=== PATIENT | female | born 1930 | race Caucasian/White ===

== ENCOUNTER 2018-01-18 12:46 | Inpatient (IN) ==
[2018-01-18 13:56] LABS: Alanine Aminotransferase 10 Units/L (7-52); Albumin 3.7 g/dL (3.5-5.7); Albumin/Globulin Ratio 1.5 (1.1-2.2); Alkaline Phosphatase 57 Units/L (34-104); Aspartate Amino Transferase 18 Units/L (13-39); BUN/Creatinine Ratio 18 (6-26); Bilirubin,Direct 0.2 mg/dL (0.0-0.2); Bilirubin,Indirect 0.5 mg/dL (0.0-1.2); Bilirubin,Total 0.7 mg/dL (0.3-1.0); Blood Urea Nitrogen 31 mg/dL (8-23); Calcium 8.9 mg/dL (8.6-10.3); Carbon Dioxide 23 mEq/L (23-29); Chloride 107 mEq/L (98-107); Globulin 2.5 g/dL (2.4-3.5); Glucose 134 mg/dL (70-105); Osmolality,Calculated 295 (280-300); Potassium 4.3 mEq/L (3.5-5.1); Sodium 138 mEq/L (136-145); Total Protein 6.2 g/dL (6.4-8.9); Troponin I < 0.03 ng/mL (< 0.04); eGFR For Non-African Americans 28 (> 60)
[2018-01-18 14:08] LABS: Basophils % 0.4 %; Eosinophils # 0.1 K/mcL (0.0-0.6); Eosinophils % 0.5 %; Hematocrit 41.2 % (35.3-44.9); Hemoglobin 13.6 g/dL (11.5-15.4); Immature Granulocytes % 0.4 % (0-4); Lymphocytes # 1.5 K/mcL (0.6-4.6); Mean Corpuscular Hemoglobin 30.8 pg (28.0-33.3); Mean Corpuscular Volume 93.4 fL (83.0-100.0); Monocytes # 0.7 K/mcL (0.0-1.3); Neutrophils # 6.8 K/mcL (1.6-8.9); Platelet Count 218 K/mcL (140-400); Red Blood Count 4.41 M/mcL (3.82-4.97); Red Cell Distribution Width 14.1 % (11.5-14.5); Segmented Neutrophils % 74.7 %
[2018-01-18 14:10] LABS: INR 1.7; Prothrombin Time 18.8 Seconds (9.4-12.1)
[2018-01-18 14:28] LABS: Bilirubin,Urine Negative (Negative); Blood,Urine Negative (Negative); Clarity,Urine Clear (Clear); Color,Urine Yellow (Yellow); Glucose,Urine (UA) Normal (Normal); Ketones,Urine Negative (Negative); Leukocyte Esterase,Urine Small (Negative); Nitrite,Urine Positive (Negative); Protein,Urine Negative (Neg-Trace); Specific Gravity,Urine 1.016 (1.010-1.025); Urobilinogen,Urine Normal (Normal)
[2018-01-18 14:31] LABS: Bacteria,Urine Moderate per hpf (None-Few); Hyaline Casts,Urine None Seen per lpf (None-Few); RBC,Urine 0-3 per hpf (0-3); Squamous Epithelial Cell,Urine Many per lpf (None-Few)
[2018-01-18] MEDS ORDERED: rOPINIRole 1 MG TABLET PO ONE (15:41)
[2018-01-18] MEDS ORDERED: cefTRIAXone 1,000 MG in Water for inj. (sterile) 20 ML 10 ML IVP ONE (15:59)
[2018-01-18] MEDS ORDERED: Furosemide 40 MG/4 ML VIAL IVP ONE (15:59)
--- NOTE | 2018-01-18 16:00 | Emergency Department Note ---
Disposition Clinical Impression: Slurred speech, Frequent falls CHF (congestive heart failure) Qualifiers: Heart failure type: unspecified Heart failure chronicity: unspecified Qualified Code(s): I50.9 - Heart failure, unspecified UTI (urinary tract infection) Qualifiers: Urinary tract infection type: site unspecified Hematuria presence: without hematuria Qualified Code(s): N39.0 - Urinary tract infection, site not specified Disposition: Admitted As Inpatient Condition: Good General Adult HPI - General Chief complaint: ED Neuro Symptoms/Deficit Stated complaint: Slurred Speech / Elevated BP Time Seen by Provider: 01/18/18 12:58 Source: patient, family Limitations: no limitations Nursing Notes Reviewed: Yes Vital Signs Reviewed: Yes - History of Present Illness HPI Narrative: Patient presents today with daughter from primary care facility for further evaluation of slurred speech, generalized weakness, frequent falls. Patient's symptoms have been going on for last several days and progressively worse over the last 2 days. Patient has undergone multiple falls without hitting her head or losing consciousness. Not complaining of any traumatic pain at this time. Has not had dizziness or near syncopal events. The patient states that she is here because her daughter brought her. Patient has no complaints on my evaluation. Patient does have some underlying dementia but is otherwise pleasant and conversational and answers all questions appropriately. Pain Scale: 3 - Related Data Home Medications Medication Instructions Recorded Confirmed Acetaminophen [Acetaminophen ER] 650 mg PO Q4H PRN 01/18/18 01/18/18 Cyanocobalamin (Vitamin B-12) 1,000 mcg PO DAILY 01/18/18 01/18/18 [Vitamin B-12] Enalapril Maleate [Vasotec] 5 mg PO DAILY 01/18/18 01/18/18 Furosemide [Lasix] 40 mg PO MOWEFR 01/18/18 01/18/18 Memantine HCl [Namenda Xr] 28 mg PO DAILY 01/18/18 01/18/18 Metoprolol [Lopressor] 25 mg PO DAILY 01/18/18 01/18/18 Pantoprazole Sodium [Protonix] 20 mg PO DAILY 01/18/18 01/18/18 Potassium Chloride [Klor-Con 10] 10 meq PO BID 01/18/18 01/18/18 Ranitidine HCl [Acid [employer] Att[employer]] 150 mg PO DAILY 01/18/18 01/18/18 Rivaroxaban [Xarelto] 15 mg PO DAILY 01/18/18 01/18/18 Sertraline [Zoloft] 25 mg PO DAILY 01/18/18 01/18/18 carBAMazepine [Tegretol] 200 mg PO BID 01/18/18 01/18/18 clonazePAM [Klonopin] 0.5 mg PO DAILY PRN 01/18/18 01/18/18 rOPINIRole [Requip] 1 mg PO HS 01/18/18 01/18/18 Allergies Allergy/AdvReac Type Severity Reaction Status Date / Time No Known Allergies Allergy Verified 01/18/18 12:51 Review of Systems: As Per HPI Constitutional: Denies: fever, chills ENT ED: Reports: other (Slurred speech) Cardiovascular: Denies: chest pain Respiratory: Denies: cough, dyspnea Gastrointestinal: Denies: abdominal pain, nausea, vomiting Genitourinary: Denies: urgency, dysuria Musculoskeletal: Denies: back pain, neck pain Integumentary: Denies: rash, lesions Neurological: Reports: weakness (Generalized), other (Frequent falls). Denies: headache Endocrine: Denies: fatigue Past Medical History - Past Medical History Medical history: Reports: atrial fibrillation, cancer, dementia, hypertension Surgical history: Reports: orthopedic, other (Left knee replacement) Psychiatric history: Reports: anxiety - Social History Smoking Status: Never smoker Smokeless Tobacco Status: No Alcohol use: Reports: none Drug use: Reports: none Physical Exam General: Well appearing, nontoxic, no acute distress Head: Normocephalic Atraumatic Eyes: PERRL, EOMI ENT: Airway patent, no stridor Neck: supple Chest: Lungs clear to auscultation bilateral Cardiac: Regular rate and rhythm, no murmurs, rubs or gallops Abdomen: soft, nontender, nondistended; no guarding, rebound, or tenderness to percussion Musculoskeletal: Calves symmetric, nontender, no palpable cord Skin: No rash, normal skin tone Neuro: Alert and Oriented to person, place, but not time. No focal deficit. Cranial nerves II through XII symmetric and intact. 5 out of 5 muscle strength throughout the upper and lower extremities. Sensation is intact throughout the upper lower extremities. She has finger to nose and heel to michelle intact. She is pleasant and conversational and follows commands without difficulty. - General Limitations: no limitations General appearance: alert, in no apparent distress Course - Reevaluation(s) Reevaluation #1: Patient lives at assisted living. Social work has seen the patient is unable to help get the patient into a fdc position. Patient with frequent falls as well as slurred speech. She will likely need more continued care. Slurred speech is noted by family but would otherwise not be noticeable on exam. Patient is very pleasant. She does have chronic kidney disease. Her BNP is elevated and she does have some pleural effusions. Urine concerning for UTI. Patient's symptoms have been treated urine culture has been sent. Patient will be discussed the hospitalist for further evaluation. - Consultations Consultation #1: Discussed with hospitalist. Patient accepted for admission. Vital Signs Temperature 98.4 F 01/18/18 12:49 Pulse Rate 73 01/18/18 12:49 Respiratory Rate 18 01/18/18 12:49 Blood Pressure 159/87 01/18/18 12:49 O2 Sat by Pulse Oximetry 95 01/18/18 12:49 Temperature 98.4 F 01/18/18 13:14 Pulse Rate 85 01/18/18 17:49 Respiratory Rate 18 01/18/18 17:49 Blood Pressure 197/114 01/18/18 17:49 O2 Sat by Pulse Oximetry 95 01/18/18 17:49 Oxygen Delivery Oxygen Delivery Room Air Medical Decision Making - Medical Records Medical records reviewed: Yes I reviewed the patient's medical records. - Lab Data Lab results reviewed: Yes I reviewed the patient's lab results. Result diagrams: 01/18/18 13:19 01/18/18 13:19 Lab Results 01/18/18 01/18/18 01/18/18 Range/Units 13:19 13:19 13:19 WBC 9.1 (4.3-11.1) K/mcL RBC 4.41 (3.82-4.97) M/mcL Hgb 13.6 (11.5-15.4) g/dL Hct 41.2 (35.3-44.9) % MCV 93.4 (83.0-100.0) fL MCH 30.8 (28.0-33.3) pg MCHC 33.0 (31.6-35.5) g/dL RDW 14.1 (11.5-14.5) % Plt Count 218 (140-400) K/mcL MPV 11.0 (9.4-12.4) fL Immature Gran % 0.4 (0-4) % Seg Neutrophils % 74.7 % Lymphocytes % 16.0 % Monocytes % 8.0 % Eosinophils % 0.5 % Basophils % 0.4 % Neutrophils # 6.8 (1.6-8.9) K/mcL Lymphocytes # 1.5 (0.6-4.6) K/mcL Monocytes # 0.7 (0.0-1.3) K/mcL Eosinophils # 0.1 (0.0-0.6) K/mcL Basophils # 0.0 (0.0-0.2) K/mcL PT 18.8 H (9.4-12.1) Seconds INR 1.7 Sodium 138 (136-145) mEq/L Potassium 4.3 (3.5-5.1) mEq/L Chloride 107 (98-107) mEq/L Carbon Dioxide 23 (23-29) mEq/L BUN 31 H (8-23) mg/dL Creatinine 1.70 H (0.60-1.20) mg/dL Est GFR ( Amer) 34 L (> 60) Est GFR (Non-Af Amer) 28 L (> 60) BUN/Creatinine Ratio 18 (6-26) Glucose 134 H (70-105) mg/dL Calculated Osmolality 295 (280-300) Calcium 8.9 (8.6-10.3) mg/dL Total Bilirubin 0.7 (0.3-1.0) mg/dL Direct Bilirubin 0.2 (0.0-0.2) mg/dL Indirect Bilirubin 0.5 (0.0-1.2) mg/dL AST 18 (13-39) Units/L ALT 10 (7-52) Units/L Alkaline Phosphatase 57 (34-104) Units/L Troponin I < 0.03 (< 0.04) ng/mL B-Natriuretic Peptide (Less than 100) pg/mL Serum Total Protein 6.2 L (6.4-8.9) g/dL Albumin 3.7 (3.5-5.7) g/dL Globulin 2.5 (2.4-3.5) g/dL Albumin/Globulin Ratio 1.5 (1.1-2.2) Urine Color (Yellow) Urine Clarity (Clear) Urine pH (5.0-8.0) pH Units Ur Specific [place] (1.010-1.025) Urine Protein (Neg-Trace) mg/dL Urine Glucose (UA) (Normal) mg/dL Urine Ketones (Negative) mg/dL Urine Blood (Negative) Urine Nitrite (Negative) Urine Bilirubin (Negative) Urine Urobilinogen (Normal) mg/dL Ur Leukocyte Esterase (Negative) Urine Microscopic RBC (0-3) per hpf Urine Microscopic WBC (0-3) per hpf Ur Squamous Epith Cells (None-Few) per lpf Urine Bacteria (None-Few) per hpf Hyaline Casts (None-Few) per lpf Ur Culture Indicated? (NO) 01/18/18 01/18/18 Range/Units 13:19 14:03 WBC (4.3-11.1) K/mcL RBC (3.82-4.97) M/mcL Hgb (11.5-15.4) g/dL Hct (35.3-44.9) % MCV (83.0-100.0) fL MCH (28.0-33.3) pg MCHC (31.6-35.5) g/dL RDW (11.5-14.5) % Plt Count (140-400) K/mcL MPV (9.4-12.4) fL Immature Gran % (0-4) % Seg Neutrophils % % Lymphocytes % % Monocytes % % Eosinophils % % Basophils % % Neutrophils # (1.6-8.9) K/mcL Lymphocytes # (0.6-4.6) K/mcL Monocytes # (0.0-1.3) K/mcL Eosinophils # (0.0-0.6) K/mcL Basophils # (0.0-0.2) K/mcL PT (9.4-12.1) Seconds INR Sodium (136-145) mEq/L Potassium (3.5-5.1) mEq/L Chloride (98-107) mEq/L Carbon Dioxide (23-29) mEq/L BUN (8-23) mg/dL Creatinine (0.60-1.20) mg/dL Est GFR ( Amer) (> 60) Est GFR (Non-Af Amer) (> 60) BUN/Creatinine Ratio (6-26) Glucose (70-105) mg/dL Calculated Osmolality (280-300) Calcium (8.6-10.3) mg/dL Total Bilirubin (0.3-1.0) mg/dL Direct Bilirubin (0.0-0.2) mg/dL Indirect Bilirubin (0.0-1.2) mg/dL AST (13-39) Units/L ALT (7-52) Units/L Alkaline Phosphatase (34-104) Units/L Troponin I (< 0.04) ng/mL B-Natriuretic Peptide 384 H (Less than 100) pg/mL Serum Total Protein (6.4-8.9) g/dL Albumin (3.5-5.7) g/dL Globulin (2.4-3.5) g/dL Albumin/Globulin Ratio (1.1-2.2) Urine Color Yellow (Yellow) Urine Clarity Clear (Clear) Urine pH 6.0 (5.0-8.0) pH Units Ur Specific [place] 1.016 (1.010-1.025) Urine Protein Negative (Neg-Trace) mg/dL Urine Glucose (UA) Normal (Normal) mg/dL Urine Ketones Negative (Negative) mg/dL Urine Blood Negative (Negative) Urine Nitrite Positive A (Negative) Urine Bilirubin Negative (Negative) Urine Urobilinogen Normal (Normal) mg/dL Ur Leukocyte Esterase Small H (Negative) Urine Microscopic RBC 0-3 (0-3) per hpf Urine Microscopic WBC 3-5 H (0-3) per hpf Ur Squamous Epith Cells Many H (None-Few) per lpf Urine Bacteria Moderate H (None-Few) per hpf Hyaline Casts None Seen (None-Few) per lpf Ur Culture Indicated? NO. A (NO) - Radiology Data Radiology results reviewed: Yes I reviewed the patient's radiology results. - EKG Data EKG #1 EKG attestation: Yes I reviewed and interpreted this EKG. EKG results narrative: EKG shows atrial fibrillation with ventricular rate of 70. QRS 92. QTC 426. Patient has no significant ST elevations or depressions.
[2018-01-18] MEDS ORDERED: Naloxone 0.4 MG/ML INJ IVP PRN (18:04)
[2018-01-18] MEDS ORDERED: Furosemide 40 MG TABLET PO SCH (18:15)
--- NOTE | 2018-01-18 18:42 | Internal Med History&Physical ---
<RadhadarendenilsonCalixto richey - Last Filed: 01/18/18 20:59> Date of Encounter: 01/18/18 Time of Encounter: 16:30 Internal Medicine - H&P: HPI Chief complaint: Transient AMS/Neuro sx Admitted From: Emergency Dept Plans for Post Hospital Care: Home History of present illness: Ms. Marcos is a 88 year old female w/PMH of atrial fibrillation on Xarelto, breast cancer of the left breast, dementia, HTN, GERD, and anxiety presents from the ED with chief complaint of transient neuro symptoms and altered mental status since Thursday. Patient's daughter's report intermittent slurred speech and weakness. Also reports incidents of falls 3 since Thursday due to bilateral lower extremity weakness. Patient's daughter's also reports increase in pedal edema of the lower extremities. Patient and daughters deny recent illness, fever, chills, nausea, vomiting, headache, changes in vision, cough, chest congestion, chest pain, shortness of breath, abdominal pain, diarrhea, constipation, unusual bleeding, dizziness, lightheadedness, numbness, tingling, pre-syncope, or syncope. Past Med Surg Social Fam HX - Past Medical History Source: patient, old records reviewed Medical history: atrial fibrillation, cancer (Left breast), dementia, GERD, hypertension Additional medical history: breast cancer Psychiatric history: anxiety - Past Surgical History Surgical History: orthopedic, other (Left knee replacement) - Social History Smoking Status: Never smoker Smokeless Tobacco Status: No Alcohol use: none Drug use: none Current living situation: Home, With Family Activity Level: Uses cane/walker Recent Out of Country Travel Within the Last 8 Weeks: No Exposure or Possible Exposure to Illness During Travel: No - Family History Mother Race: Family Member Ethnicity: Non- Living Status: Age at : 99 Cause of : "old age" Hx Family Endocrine Disorder: Yes (DM) Father Race: Family Member Ethnicity: Non- Living Status: Age at : 86 Cause of : CVA Hx Family Endocrine Disorder: Yes (DM) Brother Race: Family Member Ethnicity: Non- Living Status: Age at : 60 Cause of : [place] Hx Family Cardiac Disorders: Yes ([place]) Hx Family Endocrine Disorder: Yes (DM) Sister Race: Family Member Ethnicity: Non- Living Status: Age at : 70 Cause of : Lung cancer Hx Family Cancer: Yes (Lung) Internal Medicine - H&P: Meds Acetaminophen [Acetaminophen ER] 650 mg PO Q4H PRN 01/18/18 [History] Cyanocobalamin (Vitamin B-12) [Vitamin B-12] 1,000 mcg PO DAILY 01/18/18 [ History] Enalapril Maleate [Vasotec] 5 mg PO DAILY 01/18/18 [History] Furosemide [Lasix] 40 mg PO MOWEFR 01/18/18 [History] Memantine HCl [Namenda Xr] 28 mg PO DAILY 01/18/18 [History] Metoprolol [Lopressor] 25 mg PO DAILY 01/18/18 [History] Pantoprazole Sodium [Protonix] 20 mg PO DAILY 01/18/18 [History] Potassium Chloride [Klor-Con 10] 10 meq PO BID 01/18/18 [History] Ranitidine HCl [Acid Targeting Acquisition Officer] 150 mg PO DAILY 01/18/18 [History] Rivaroxaban [Xarelto] 15 mg PO DAILY 01/18/18 [History] Sertraline [Zoloft] 25 mg PO DAILY 01/18/18 [History] carBAMazepine [Tegretol] 200 mg PO BID 01/18/18 [History] clonazePAM [Klonopin] 0.5 mg PO DAILY PRN 01/18/18 [History] rOPINIRole [Requip] 1 mg PO HS 01/18/18 [History] 3 Allergy/AdvReac Type Severity Reaction Status Date / Time No Known Allergies Allergy Verified 01/18/18 12:51 All Systems PM: A 10-system review of systems was performed and is negative for pertinent findings except as documented above in the HPI. - Constitutional Constitutional: as per HPI, falls, weakness (Bilateral LEs), no chills, no fever (s), no night sweats - EENT Eyes: no change in vision, no discharge, no pain, no photophobia Ears: no ear discharge, no ear pain, no tinnitus Nose, mouth and throat: no dysphagia, no nasal discharge, no neck pain, no sore throat - Breasts Breasts: as per HPI - Cardiovascular Cardiovascular ROS IM: as per HPI, edema (Bilateral pedal edema), irregular heart rhythm, orthopnea, no chest pain, no diaphoresis, no dyspnea, no lightheadedness, no palpitations, no syncope - Respiratory Respiratory: no cough, no dyspnea, no wheezing, no excessive phlegm production - Gastrointestinal Gastrointestinal: no abdominal pain, no diarrhea, no hematemesis, no hematochezia, no melena, no nausea, no vomiting - Genitourinary Genitourinary: no change in urinary stream, no dysuria, no flank pain, no hematuria Menstruation: as per HPI - Musculoskeletal Musculoskeletal ROS IM: no numbness, no tingling - Integumentary Integumentary IM: no rash, no unusual bruising - Neurological Neurological ROS: as per HPI, abnormal speech, confusion, frequent falls, memory loss (D/T dementia), weakness (Bilateral LEs), no convulsions, no focal weakness, no numbness, no tingling, no tremor(s) - Psychiatric Psychiatric: as per HPI, anxiety - Endocrine Endocrine IM: as per HPI - Hematologic/Lymphatic Hematologic/Lymphatic: no easy bruising - Allergic/Immunologic Allergic/Immunologic: as per HPI - Constitutional Vitals: Temp Pulse Resp BP Pulse Ox 98.4 F 85 18 197/114 95 01/18/18 13:14 01/18/18 17:49 01/18/18 17:49 01/18/18 17:49 01/18/18 17:49 General appearance: Present: cooperative, A&O X 2, pleasant, no acute distress, obese, answers questions appropriately - Head Head exam: Present: atraumatic, normocephalic - Eye Eye exam: Present: PERRL, conjuntiva pink, sclera anicteric Pupils: Present: PERRL - ENT ENT exam: Present: normal exam - Neck Neck exam general surgery: Present: supple, trachea midline. Absent: lymphadenopathy - Respiratory Respiratory exam: Present: CTAB. Absent: accessory muscle use, rales, rhonchi, wheezes - Cardiovascular Cardiovascular exam: Present: irregular rhythm - GI/Abdominal GI/Abdominal exam: Present: normal bowel sounds, soft, no peritoneal signs. Absent: distended, tenderness - Rectal Rectal exam: Present: deferred - Additional comments: exam deferred. - Extremities Exam Extremities exam: Present: pedal edema, warm, radial pulses palpable and symmetrical. Absent: calf tenderness, cyanotic - Back Exam Back exam: Present: normal inspection - Neurological Exam Neurological exam: Present: alert, CN II-XII intact, no focal deficits, strengths equal and symetr throughout. Absent: pronater drift, facial droop, speech deficit - Psychiatric Psychiatric exam: Present: normal affect, normal mood - Skin Skin exam: Present: dry, intact Internal Med - H&P Results - Labs CBC & Chem 7: 01/18/18 13:19 01/18/18 13:19 - Diagnostic Studies Chest x-ray Additional comments: Impressions Chest X-Ray 01/18/18 12:59 IMPRESSION: Findings suggest congestive heart failure. Bibasilar hypoaeration D/ / Siva Valdes MD / Siva Valdes MD Interpreting Provider: Siva Valdes MD CT scan - head Additional comments: Impressions Head CT 01/18/18 12:59 IMPRESSION: No acute intracranial abnormality. Age related changes including chronic small vessel ischemic disease and cerebral atrophy. D/ / 01/18/2018 14:18:33 Amanda Camacho MD / jennifer Interpreting Provider: Amanda Camacho MD - Assessment and plan (1) Transient neurological symptoms Current Visit: Yes Status: Acute Assessment and plan: Acute and transient neurologic sx as described by pts. daughters since Thursday. Patient's daughters reports slurred speech and weakness intermittently with falls 3 since Thursday. Patient also has history of dementia. Current dx of UTI. CT of the head/brain shows no acute intracranial abnormality and age-related changes including chronic small vessel ischemic disease and cerebral atrophy. MRI of the head/brain ordered to r/o infarct/ischemia. NIHSS modified. Neuro checks Q2HR. Padding to bed rails. Will allow for permissive HTN until MRI resulted. Neurology consult ordered and discussed with Dr. Adair and I appreciate the consult and recommendations. Falls/safety precautions. Up with assist. Patient discussed with Dr. Dennison who agrees w/plan of care. Pt. is high risk for further morbidity and complications d/t current transient neuro sx , current UTI, HTN, acute and new onset of congestive heart failure, hx, and risk factors. Inpatient. (2) UTI (urinary tract infection) Current Visit: Yes Status: Acute Assessment and plan: Acute UTI. U/A suspicious for UTI so urine reflex w/culture and micro ordered. AMS from UTI versus current dementia versus transient neuro sx. IVPB ceftriaxone given in ED. Will continue IVPB ceftriaxone 1000 mg daily beginning tomorrow per pharmacy for renal dosing. Monitor pt. and f/u labs. Qualifiers: Urinary tract infection type: site unspecified Hematuria presence: without hematuria Qualified Code(s): N39.0 - Urinary tract infection, site not specified (3) Acute congestive heart failure Current Visit: Yes Status: Acute Assessment and plan: Acute congestive heart failure. BNP 384 on admission. Patient and daughters deny formal diagnosis of CHF. 1.5 L daily fluid restriction. Echocardiogram ordered. Strict I&O and daily weight. 40 mg IVP Lasix given in ED the patient to be monitored overnight per Nephrology in order to assess for the need for IVP Lasix. Qualifiers: Heart failure type: unspecified Qualified Code(s): I50.9 - Heart failure, unspecified (4) Frequent falls Current Visit: Yes Status: Acute Assessment and plan: Hx of three falls since Thursday d/t weakness of bilateral LEs. Falls/safety precautions. Up with assist only. PT/OT consults ordered. (5) Atrial fibrillation Current Visit: Yes Status: Chronic Assessment and plan: Hx of chronic atrial fibrillation. Continue patient's Xarelto. Continuous cardiac telemetry. Qualifiers: Atrial fibrillation type: chronic Qualified Code(s): I48.2 - Chronic atrial fibrillation (6) Dementia Current Visit: Yes Status: Chronic Assessment and plan: Hx of chronic dementia. Continue patient's Namenda. Falls/safety precautions and up with assist. Consider adding sitter if patient becomes agitated. Qualifiers: Dementia type: unspecified type Dementia behavioral disturbance: without behavioral disturbance Qualified Code(s): F03.90 - Unspecified dementia without behavioral disturbance (7) HTN (hypertension) Current Visit: Yes Status: Chronic Assessment and plan: Hx of chronic HTN. Monitor patient vital signs. Will allow for permissive hypertension due to neurologic symptoms currently while awaiting MRI results. We will continue Lopressor and Vasotec if MRI results negative. Qualifiers: Hypertension type: essential hypertension Qualified Code(s): I10 - Essential (primary) hypertension (8) Anxiety Current Visit: Yes Status: Chronic Assessment and plan: Hx of chronic anxiety. Continue pts. Tegretol, Klonopin, and Zoloft. (9) CKD (chronic kidney disease) stage 4, GFR 15-29 ml/min Current Visit: Yes Status: Chronic Assessment and plan: Hx of chronic CKD, currently stage IV w/GFR of 28 and creatinine of 1.70. Strict I&O's and daily weight. Nephrology consult ordered and discussed with Dr. Barron w/recommendation to give 40 mg IVP lasix and monitor overnight for effectiveness. Assess for further need for IVP lasix in a.m. I appreciate the consult and recommendations as always. (10) DVT prophylaxis Current Visit: Yes Status: Acute Assessment and plan: Continue patient's Xarelto for DVT prophylaxis. Monitor pt. for signs of bleeding. - Time Spent With Patient Total time spent is greater than 50% in coordination of care (as documented) at patient's floor/unit and/or counseling patient: Greater than 35 minutes <Hari Dennison - Last Filed: 01/20/18 00:00> Date of Encounter: 01/18/18 Internal Medicine - H&P: HPI History of present illness: Ms. Marcos is a 88 year old female All Systems PM: A 10-system review of systems was performed and is negative for pertinent findings except as documented above in the HPI. - Constitutional Vitals: Temp Pulse Resp BP Pulse Ox 97.4 F L 60 16 162/88 95 01/19/18 16:16 01/19/18 16:16 01/19/18 16:16 01/19/18 16:16 01/19/18 16:16 Internal Med - H&P Results - Labs CBC & Chem 7: 01/19/18 04:00 01/19/18 04:00 Labs: Short CBC 01/19/18 Range/Units 04:00 WBC 7.8 (4.3-11.1) K/mcL Hgb 13.9 (11.5-15.4) g/dL Hct 41.8 (35.3-44.9) % Plt Count 204 (140-400) K/mcL Neutrophils # 5.3 (1.6-8.9) K/mcL BMP 01/19/18 04:00 Sodium 140 Potassium 3.6 Chloride 104 Carbon Dioxide 26 BUN 34 H Creatinine 1.57 H Glucose 108 H Calcium 9.0 Liver Function 01/19/18 Range/Units 04:00 Total Bilirubin 0.6 (0.3-1.0) mg/dL AST 18 (13-39) Units/L ALT 10 (7-52) Units/L Alkaline Phosphatase 70 (34-104) Units/L Albumin 3.6 (3.5-5.7) g/dL - Attending Attestation I SAW/EXAMINED AND EVALUATED THE PATIENT WITH THE QUARRYING SPECIALIST/PA/ ON THE DAY OF ADMISSION. THE CASE WAS DISCUSSED WITH HIM/HER. I AGREE WITH THE FINDINGS/PLAN , DOCUMENTED IN THE QUARRYING SPECIALIST/PA'S H&P. THE DOCUMENT WAS EDITED BY ME TO CORRECT ERRORS AND ADD MISSING DATA. - Assessment and plan (1) Frequent falls Current Visit: Yes Status: Acute (2) UTI (urinary tract infection) Current Visit: Yes Status: Acute Qualifiers: Urinary tract infection type: acute cystitis Hematuria presence: without hematuria Qualified Code(s): N30.00 - Acute cystitis without hematuria (3) Transient neurological symptoms Current Visit: Yes Status: Acute (4) Acute congestive heart failure Current Visit: Yes Status: Acute Qualifiers: Heart failure type: systolic Qualified Code(s): I50.21 - Acute systolic ( congestive) heart failure (5) DVT prophylaxis Current Visit: Yes Status: Acute (6) Atrial fibrillation Current Visit: Yes Status: Chronic Qualifiers: Atrial fibrillation type: chronic Qualified Code(s): I48.2 - Chronic atrial fibrillation (7) Dementia Current Visit: Yes Status: Chronic Qualifiers: Dementia type: unspecified type Dementia behavioral disturbance: without behavioral disturbance Qualified Code(s): F03.90 - Unspecified dementia without behavioral disturbance (8) HTN (hypertension) Current Visit: Yes Status: Chronic Qualifiers: Hypertension type: essential hypertension Qualified Code(s): I10 - Essential (primary) hypertension (9) Anxiety Current Visit: Yes Status: Chronic (10) CKD (chronic kidney disease) stage 4, GFR 15-29 ml/min Current Visit: Yes Status: Chronic (11) Stroke Current Visit: Yes Status: Acute Qualifiers: CVA mechanism: embolism Precerebral and cerebral artery: middle cerebral artery Laterality of affected vessel: left Qualified Code(s): I63.412 - Cerebral infarction due to embolism of left middle cerebral artery - Time Spent With Patient Total time spent is greater than 50% in coordination of care (as documented) at patient's floor/unit and/or counseling patient:
[2018-01-18] MEDS: rOPINIRole 1 MG TABLET PO SCH (21:15)
[2018-01-18] MEDS: carBAMazepine 200 MG TABLET PO SCH (21:18)
[2018-01-19] MEDS ORDERED: *HR* Metoprolol 5 MG/5 ML VIAL IVP ONE (01:15)
[2018-01-19 04:25] LABS: Basophils % 0.5 %; Eosinophils # 0.1 K/mcL (0.0-0.6); Eosinophils % 1.8 %; Hematocrit 41.8 % (35.3-44.9); Hemoglobin 13.9 g/dL (11.5-15.4); Immature Granulocytes % 0.5 % (0-4); Lymphocytes # 1.4 K/mcL (0.6-4.6); Lymphocytes % 18.4 %; Mean Corpuscular HGB Conc 33.3 g/dL (31.6-35.5); Mean Corpuscular Hemoglobin 30.5 pg (28.0-33.3); Mean Corpuscular Volume 91.7 fL (83.0-100.0); Mean Platelet Volume 10.7 fL (9.4-12.4); Monocytes # 0.9 K/mcL (0.0-1.3); Monocytes % 10.9 %; Neutrophils # 5.3 K/mcL (1.6-8.9); Platelet Count 204 K/mcL (140-400); Red Blood Count 4.56 M/mcL (3.82-4.97); Red Cell Distribution Width 13.9 % (11.5-14.5); Segmented Neutrophils % 67.9 %
[2018-01-19 04:47] LABS: Albumin 3.6 g/dL (3.5-5.7); Albumin/Globulin Ratio 1.3 (1.1-2.2); Bilirubin,Total 0.6 mg/dL (0.3-1.0); Chol/HDL Ratio 4.9 (0-4.9); Globulin 2.7 g/dL (2.4-3.5); Magnesium 1.9 mg/dL (1.6-2.6); Potassium 3.6 mEq/L (3.5-5.1); Total Protein 6.3 g/dL (6.4-8.9)
[2018-01-19 06:54] LABS: Estimated Average Glucose 114 mg/dl; Hemoglobin A1C 5.6 %
--- NOTE | 2018-01-19 07:10 | Electrocardiograph Report ---
[facility] [employer] Test Date: 2018-01-18 Pat Name: Dixon Marcos Department: 103 Room: 2NE21 Gender: F [employer] Cutter: 32 : 1930 Requested By: [id number] Order Number: [id number] Reading MD: Calixto Barnes Measurements Intervals [place] Rate: 70 P: MO: 0 QRS: 40 QRSD: 92 T: 11 QT: 405 QTc: 426 Interpretive Statements ATRIAL FIBRILLATION MODERATE ST DEPRESSION [0.05+ mV ST DEPRESSION] Electronically Signed On 01-19-2018 7:09:06 EDT by Calixto Barnes
--- NOTE | 2018-01-19 08:27 | Neurology - Consult Note ---
<Declan Ren - Last Filed: 01/19/18 08:42> Date of Encounter: 01/19/18 Time of Encounter: 08:05 Assessment and Plan (1) Transient neurological symptoms Current Visit: Yes Status: Acute Her neurological symptoms from admission have resolved today. She does have an underlying baseline dementia and her AMS and confusion could be exacerbations of this and most likely due to her current UTI or hypertensive encephalopathy. Her BP was as high as 200/130 this early am and at last check was 181/99. 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 No evidence of her neurological symptoms due to a new acute infarct. Recommend restarting her antihypertensives Continue current UTI treatment Recommend starting a statin Will check carbamazepine level. Unknown reason at this time of why she is taking this as she denies any hx of seizures or bipolar. Daughter not present at time of exam but will check with her if she knows why. Code(s): R29.818 - Other symptoms and signs involving the nervous system SNOMED Code(s): 342803973 History of Present Illness Chief complaint: LE weakness and AMS HPI: Ms. Marcos is a 88 year old female with a PMH significant for afib, HTN, dementia, and anxiety who neurology consulted for altered mental status and intermittent neuro symptoms of LE weakness and slurred speech. Most of history comes from her medical record as she could not remember answers to most of my questions. Her daughter was not present but was last night during admission. For the last 4 days she has been experiencing LE weakness and slurred speech that is intermittent but does not remember how long the symptoms last or how often they occur. She says she thinks the LE weakness is worse in the evening and also indicates she has LE edema that also worsens as the day goes on. She doesn't recall if she has had these symptoms before. She has fallen 3x in the last 4 days and thinks it has always been when she is walking. She has a walker but says she doesn't use it. She denied any dizziness, lightheadedness, diplopia , blurry vision, impending syncope or syncope, hx seizures or migraines, chest pain, palpitations, SOB, numbness, paresthesias, UE weakness, worsening confusion, or dysphagia. UA here shows a current UTI, in afib on arrival, CT head did not show anything acute and her MRI brain showed 2 small cerebral infarcts that are most likely subacute involving L frontal and L parietal lobes. Her BP was as high as 200/130 this early am and was 181/99 currently with BP meds held. Past Med Surg Social Fam HX - Past Medical History Medical history: atrial fibrillation, cancer (Left breast), dementia, GERD, hypertension Additional medical history: breast cancer Psychiatric history: anxiety - Past Surgical History Surgical History: orthopedic, other (Left knee replacement) - Social History Smoking Status: Never smoker Smokeless Tobacco Status: No Alcohol use: none Drug use: none - Family History Brother Race: Family Member Ethnicity: Non- Living Status: Age at : 60 Cause of : CA Hx Family Cardiac Disorders: Yes (CA) Hx Family Endocrine Disorder: Yes (DM) Sister Race: Family Member Ethnicity: Non- Living Status: Age at : 70 Cause of : Lung cancer Hx Family Cancer: Yes (Lung) Mother Race: Family Member Ethnicity: Non- Living Status: Age at : 99 Cause of : "old age" Hx Family Endocrine Disorder: Yes (DM) Father Race: Family Member Ethnicity: Non- Living Status: Age at : 86 Cause of : CVA Hx Family Endocrine Disorder: Yes (DM) Medications and Allergies Acetaminophen [Acetaminophen ER] 650 mg PO Q4H PRN 01/18/18 [History] Cyanocobalamin (Vitamin B-12) [Vitamin B-12] 1,000 mcg PO DAILY 01/18/18 [ History] Enalapril Maleate [Vasotec] 5 mg PO DAILY 01/18/18 [History] Furosemide [Lasix] 40 mg PO MOWEFR 01/18/18 [History] Memantine HCl [Namenda Xr] 28 mg PO DAILY 01/18/18 [History] Metoprolol [Lopressor] 25 mg PO DAILY 01/18/18 [History] Pantoprazole Sodium [Protonix] 20 mg PO DAILY 01/18/18 [History] Potassium Chloride [Klor-Con 10] 10 meq PO BID 01/18/18 [History] Ranitidine HCl [Acid Sales Route Driver] 150 mg PO DAILY 01/18/18 [History] Rivaroxaban [Xarelto] 15 mg PO DAILY 01/18/18 [History] Sertraline [Zoloft] 25 mg PO DAILY 01/18/18 [History] carBAMazepine [Tegretol] 200 mg PO BID 01/18/18 [History] clonazePAM [Klonopin] 0.5 mg PO DAILY PRN 01/18/18 [History] rOPINIRole [Requip] 1 mg PO HS 01/18/18 [History] 3 Allergy/AdvReac Type Severity Reaction Status Date / Time No Known Allergies Allergy Verified 01/18/18 12:51 All Systems: The remainder of the systems were reviewed and are negative Physical Examination - Vital Signs Vital Signs: Initial Vital Signs Temp Pulse Resp BP Pulse Ox 98.4 F 73 18 159/87 95 01/18/18 12:49 01/18/18 12:49 01/18/18 12:49 01/18/18 12:49 01/18/18 12:49 - Constitutional General appearance: comfortable - Neurologic Sensorimotor examination: intact Motor examination - right side: 5/5: deltoids, biceps, triceps, wrist flexion, wrist extension, data examination clerk, hip flexors, tibialis Anterior, quadriceps, toe extension (EHL), plantarflexion Motor examination - left side: 5/5: deltoids, biceps, triceps, wrist flexion, wrist extension, hip flexors, data examination clerk, quadriceps, tibialis Anterior, toe extension (EHL), plantarflexion Detailed sensory examination: intact, light touch, temperature, vibration Reflexes: Biceps: 2+, Triceps: 2+, Brachioradialis: 2+, Patella: 2+, Achilles: 2 + Mental Status Examination: awake, alert, oriented to person, oriented to place, follows commands appropriately, demented, impaired memory, impaired cognition, MMSE (Oriented to time and place but did not know the persident, could spell world forward but not backwards, could do serial 7's x1, remembered 0/3 words, could repeat, name objects, and follow commands, ), not reliable historian Cranial nerve examination: PERRL, EOMI, visual saldivar intact, sensory to face intact, no facial asymmetry is present, no dysarthria, soft palate elevates bilaterally upon phonation, flexes SCM and trapezius muscles symmetrically with full power, tongue protrudes midline, no atrophy or facial fasiculations present Cerebellar examination: no dysmetria Results - Laboratory Findings CBC and BMP: 01/19/18 04:00 01/19/18 04:00 Abnormal lab findings: Abnormal lab results PT 18.8 Seconds (9.4-12.1) H 01/18/18 13:19 BUN 34 mg/dL (8-23) H 01/19/18 04:00 Creatinine 1.57 mg/dL (0.60-1.20) H 01/19/18 04:00 Est GFR ( Amer) 38 (> 60) L 01/19/18 04:00 Est GFR (Non-Af Amer) 31 (> 60) L 01/19/18 04:00 Glucose 108 mg/dL (70-105) H 01/19/18 04:00 B-Natriuretic Peptide 384 pg/mL (Less than 100) H 01/18/18 13:19 Serum Total Protein 6.3 g/dL (6.4-8.9) L 01/19/18 04:00 Triglycerides 150 mg/dL (< 150) H 01/19/18 04:00 HDL Cholesterol 33 mg/dL (40-59) L 01/19/18 04:00 Urine Nitrite Positive (Negative) A 01/18/18 14:03 Ur Leukocyte Esterase Small (Negative) H 01/18/18 14:03 Urine Microscopic WBC 3-5 per hpf (0-3) H 01/18/18 14:03 Ur Squamous Epith Cells Many per lpf (None-Few) H 01/18/18 14:03 Urine Bacteria Moderate per hpf (None-Few) H 01/18/18 14:03 Ur Culture Indicated? NO. (NO) A 01/18/18 14:03 Consult Discharge Plan - Plan Referrals: Aidan Amador MD [Primary Care Provider] - <Siva Mares - Last Filed: 01/19/18 18:06> Date of Encounter: 01/19/18 Time of Encounter: 17:58 Assessment and Plan (1) Encephalopathy acute Current Visit: Yes Status: Acute I believe this patient has experienced acute encephalopathy superimposed on her baseline dementia. I believe that there is a acute component of hypertensive encephalopathy. Her blood pressure upon admission was 200/130. I believe is also a component of infectious encephalopathy secondary to acute UTI. Her symptoms have not resolved since admission and she is back to her normal baseline. The MRI scan of the brain did reveal 2 small subcortical infarcts 1 left frontal the other left parietal. I am not convinced that either of these are relative to the symptoms resulting in her acute admission. However there likely resultant from the malignant hypertension. The only other concern I have is whether or not she could possibly be toxic on the carbamazepine. I will therefore check a carbamazepine level. I will reassess her tomorrow. She will continue her Xarelto. I would not be in favor of starting antiplatelet therapy on her. Daughter is concerned that she has had a few falls as of late. Although I find no focal neurologic deficits, it may not be a bad idea for her to go to a retirement facility for short rehabilitation course upon discharge from the hospital. History of Present Illness HPI: Chart was reviewed, patient was seen and examined independently. The case was discussed with Dr. Ren. Actually she does not have seizures however she takes carbamazepine for trigeminal neuralgia. Other than that, I agree with his assessment of the history as stated above. Ms. Marcos is a 88 year old female ROS unobtainable: due to mental status All Systems: The remainder of the systems were reviewed and are negative Physical Examination - Vital Signs Vital Signs: Initial Vital Signs Temp Pulse Resp BP Pulse Ox 98.4 F 73 18 159/87 95 01/18/18 12:49 01/18/18 12:49 01/18/18 12:49 01/18/18 12:49 01/18/18 12:49 - Exam Exam: I agree with Dr. Ren's neurologic examination is documented on this record. Results - Laboratory Findings CBC and BMP: 01/19/18 04:00 01/19/18 04:00 Abnormal lab findings: Abnormal lab results PT 18.8 Seconds (9.4-12.1) H 01/18/18 13:19 BUN 34 mg/dL (8-23) H 01/19/18 04:00 Creatinine 1.57 mg/dL (0.60-1.20) H 01/19/18 04:00 Est GFR ( Amer) 38 (> 60) L 01/19/18 04:00 Est GFR (Non-Af Amer) 31 (> 60) L 01/19/18 04:00 Glucose 108 mg/dL (70-105) H 01/19/18 04:00 B-Natriuretic Peptide 384 pg/mL (Less than 100) H 01/18/18 13:19 Serum Total Protein 6.3 g/dL (6.4-8.9) L 01/19/18 04:00 Triglycerides 150 mg/dL (< 150) H 01/19/18 04:00 HDL Cholesterol 33 mg/dL (40-59) L 01/19/18 04:00 Urine Nitrite Positive (Negative) A 01/18/18 14:03 Ur Leukocyte Esterase Small (Negative) H 01/18/18 14:03 Urine Microscopic WBC 3-5 per hpf (0-3) H 01/18/18 14:03 Ur Squamous Epith Cells Many per lpf (None-Few) H 01/18/18 14:03 Urine Bacteria Moderate per hpf (None-Few) H 01/18/18 14:03 Ur Culture Indicated? NO. (NO) A 01/18/18 14:03
[2018-01-19] MEDS: Cyanocobalamin (B-12) 1,000 MCG TABLET PO SCH (10:00)
[2018-01-19] MEDS: Famotidine 20 MG TABLET PO SCH (10:00)
[2018-01-19] MEDS: *HR* Rivaroxaban 15 MG TABLET PO SCH (10:01)
[2018-01-19] MEDS: carBAMazepine 200 MG TABLET PO SCH ×2 (10:05→20:42)
[2018-01-19] MEDS ORDERED: NON-FORMULARY MEDICATION 1 EACH EACH (Acetaminophen [Acetaminophen Er] 650 MG) PO PRN (12:59)
--- NOTE | 2018-01-19 15:03 | Neurology - Consult Note ---
Date of Encounter: 01/19/18 Time of Encounter: 14:00 History of Present Illness Chief complaint: slurred speech HPI: Ms. Marcos is a 88 year old female PMHx CHF, A fib on Xeralto, dementia, CKD stage 4, history of left breast cancer presented with complaints of altered mental status and slurred speech/weakness with multiple falls as well as pedal edema. Daughter is at bedside. Patient reports that her edema has improved. Denies any current dizziness or blurry vision. AO x 3. Does admit to worsening weakness over the last few months. Denies difficulty voiding, denies hematuria, dysuria. Able to tolerate PO intake but does admit to lack of appetite. Denies recent illness, fever, chills, nausea, vomiting, diarrhea. Past Med Surg Social Fam HX - Past Medical History Medical history: atrial fibrillation, cancer (Left breast), dementia, GERD, hypertension Additional medical history: breast cancer Psychiatric history: anxiety - Past Surgical History Surgical History: orthopedic, other (Left knee replacement) - Social History Smoking Status: Never smoker Smokeless Tobacco Status: No Alcohol use: none Drug use: none - Family History Brother Race: Family Member Ethnicity: Non- Living Status: Age at : 60 Cause of : ID Hx Family Cardiac Disorders: Yes (ID) Hx Family Endocrine Disorder: Yes (DM) Sister Race: Family Member Ethnicity: Non- Living Status: Age at : 70 Cause of : Lung cancer Hx Family Cancer: Yes (Lung) Mother Race: Family Member Ethnicity: Non- Living Status: Age at : 99 Cause of : "old age" Hx Family Endocrine Disorder: Yes (DM) Father Race: Family Member Ethnicity: Non- Living Status: Age at : 86 Cause of : CVA Hx Family Endocrine Disorder: Yes (DM) Medications and Allergies Acetaminophen [Acetaminophen ER] 650 mg PO Q4H PRN 01/18/18 [History] Cyanocobalamin (Vitamin B-12) [Vitamin B-12] 1,000 mcg PO DAILY 01/18/18 [ History] Enalapril Maleate [Vasotec] 5 mg PO DAILY 01/18/18 [History] Furosemide [Lasix] 40 mg PO MOWEFR 01/18/18 [History] Memantine HCl [Namenda Xr] 28 mg PO DAILY 01/18/18 [History] Metoprolol [Lopressor] 25 mg PO DAILY 01/18/18 [History] Pantoprazole Sodium [Protonix] 20 mg PO DAILY 01/18/18 [History] Potassium Chloride [Klor-Con 10] 10 meq PO BID 01/18/18 [History] Ranitidine HCl [Acid Sas Statistical Programmer] 150 mg PO DAILY 01/18/18 [History] Rivaroxaban [Xarelto] 15 mg PO DAILY 01/18/18 [History] Sertraline [Zoloft] 25 mg PO DAILY 01/18/18 [History] carBAMazepine [Tegretol] 200 mg PO BID 01/18/18 [History] clonazePAM [Klonopin] 0.5 mg PO DAILY PRN 01/18/18 [History] rOPINIRole [Requip] 1 mg PO HS 01/18/18 [History] 3 Allergy/AdvReac Type Severity Reaction Status Date / Time No Known Allergies Allergy Verified 01/18/18 12:51 All Systems: The remainder of the systems were reviewed and are negative Physical Examination - Vital Signs Vital Signs: Initial Vital Signs Temp Pulse Resp BP Pulse Ox 98.4 F 73 18 159/87 95 01/18/18 12:49 01/18/18 12:49 01/18/18 12:49 01/18/18 12:49 01/18/18 12:49 Results - Laboratory Findings CBC and BMP: 01/19/18 04:00 01/19/18 04:00 Abnormal lab findings: Abnormal lab results PT 18.8 Seconds (9.4-12.1) H 01/18/18 13:19 BUN 34 mg/dL (8-23) H 01/19/18 04:00 Creatinine 1.57 mg/dL (0.60-1.20) H 01/19/18 04:00 Est GFR ( Amer) 38 (> 60) L 01/19/18 04:00 Est GFR (Non-Af Amer) 31 (> 60) L 01/19/18 04:00 Glucose 108 mg/dL (70-105) H 01/19/18 04:00 B-Natriuretic Peptide 384 pg/mL (Less than 100) H 01/18/18 13:19 Serum Total Protein 6.3 g/dL (6.4-8.9) L 01/19/18 04:00 Triglycerides 150 mg/dL (< 150) H 01/19/18 04:00 HDL Cholesterol 33 mg/dL (40-59) L 01/19/18 04:00 Urine Nitrite Positive (Negative) A 01/18/18 14:03 Ur Leukocyte Esterase Small (Negative) H 01/18/18 14:03 Urine Microscopic WBC 3-5 per hpf (0-3) H 01/18/18 14:03 Ur Squamous Epith Cells Many per lpf (None-Few) H 01/18/18 14:03 Urine Bacteria Moderate per hpf (None-Few) H 01/18/18 14:03 Ur Culture Indicated? NO. (NO) A 01/18/18 14:03 Consult Discharge Plan - Plan Referrals: Aidan Amador MD [Primary Care Provider] -
--- NOTE | 2018-01-19 15:16 | Nephrology Consult Note ---
Date of Encounter: 01/19/18 Time of Encounter: 14:00 Assessment and Plan (1) CKD (chronic kidney disease) stage 4, GFR 15-29 ml/min Current Visit: Yes Status: Chronic Patient's creatinine and renal function at baseline. No signs of current pedal edema noted. Patient is to resume her home BP medications including lisinopril 10mg daily and metoprolol 25mg daily. As there are no signs of edema, lasix only as needed for volume overload. Patient follows up outpatient with Dr. Wray. Plan to follow-up after discharge. (2) HTN (hypertension) Current Visit: Yes Status: Chronic Patient's BP has improved. We do not want to over-correct her blood pressure due to subacute cerebral infarcts. She is to continue her home medications as stated above. Hydralazine IV 10mg as needed for Systolic BP > 180. Qualifiers: Hypertension type: essential hypertension Qualified Code(s): I10 - Essential (primary) hypertension History of Present Illness - Reason for Consult Consult date: 01/19/18 Chronic Kidney Disease, accelerated hypertension Requesting physician: Calixto Maldonado - Chief Complaint Slurred speech, multiple falls, pedal edema - History of Present Illness 88F PMHx CHF, Atrial fibrillation on Xeralto, dementia, CKD stage 4, history of left breast cancer presented to ED for altered mental status with slurred speech , multiple falls, and pedal edema. Daughter is at bedside and reports that the patient has had worsening LE edema for the last few weeks. Patient denies any current dizziness, blurry vision, chest pain, SOB. She is able to void without difficulty and denies hematuria or dysuria. Denies recent illness, fever, chills , nausea, vomiting, diarrhea. She does admit to gradual worsening fatigue and decrease in oral intake. Denies any current focal deficits. Past Med Surg Social Fam HX - Past Medical History Medical history: atrial fibrillation, cancer (Left breast), dementia, GERD, hypertension Additional medical history: breast cancer Psychiatric history: anxiety - Past Surgical History Surgical History: orthopedic, other (Left knee replacement) - Social History Smoking Status: Never smoker Smokeless Tobacco Status: No Alcohol use: none Drug use: none - Family History Brother Race: Family Member Ethnicity: Non- Living Status: Age at : 60 Cause of : PA Hx Family Cardiac Disorders: Yes ([place]) Hx Family Endocrine Disorder: Yes (DM) Sister Race: Family Member Ethnicity: Non- Living Status: Age at : 70 Cause of : Lung cancer Hx Family Cancer: Yes (Lung) Mother Race: Family Member Ethnicity: Non- Living Status: Age at : 99 Cause of : "old age" Hx Family Endocrine Disorder: Yes (DM) Father Race: Family Member Ethnicity: Non- Living Status: Age at : 86 Cause of : CVA Hx Family Endocrine Disorder: Yes (DM) Medications and Allergies Acetaminophen [Acetaminophen ER] 650 mg PO Q4H PRN 01/18/18 [History] Cyanocobalamin (Vitamin B-12) [Vitamin B-12] 1,000 mcg PO DAILY 01/18/18 [ History] Enalapril Maleate [Vasotec] 5 mg PO DAILY 01/18/18 [History] Furosemide [Lasix] 40 mg PO MOWEFR 01/18/18 [History] Memantine HCl [Namenda Xr] 28 mg PO DAILY 01/18/18 [History] Metoprolol [Lopressor] 25 mg PO DAILY 01/18/18 [History] Pantoprazole Sodium [Protonix] 20 mg PO DAILY 01/18/18 [History] Potassium Chloride [Klor-Con 10] 10 meq PO BID 01/18/18 [History] Ranitidine HCl [Acid Provisioning Analyst] 150 mg PO DAILY 01/18/18 [History] Rivaroxaban [Xarelto] 15 mg PO DAILY 01/18/18 [History] Sertraline [Zoloft] 25 mg PO DAILY 01/18/18 [History] carBAMazepine [Tegretol] 200 mg PO BID 01/18/18 [History] clonazePAM [Klonopin] 0.5 mg PO DAILY PRN 01/18/18 [History] rOPINIRole [Requip] 1 mg PO HS 01/18/18 [History] 3 Allergy/AdvReac Type Severity Reaction Status Date / Time No Known Allergies Allergy Verified 01/18/18 12:51 Review of Systems All Systems: reviewed and no additional remarkable complaints except as stated Constitutional: as per HPI Nose, mouth and throat: as per HPI Cardiovascular: as per HPI Respiratory: as per HPI Gastrointestinal: as per HPI Genitourinary Female: as per HPI Menstruation: as per HPI Musculoskeletal: as per HPI Integumentary: as per HPI Neurological: as per HPI Exam - Vital Signs Vital signs: Initial Vital Signs Temp Pulse Resp BP Pulse Ox 98.4 F 73 18 159/87 95 01/18/18 12:49 01/18/18 12:49 01/18/18 12:49 01/18/18 12:49 01/18/18 12:49 Vital Signs - Last 8 Hours Temp Pulse Resp BP Pulse Ox 01/19/18 14:56 146/96 01/19/18 12:07 97.5 F L 85 16 152/118 95 Intake and Output 01/18/18 01/19/18 01/19/18 23:59 07:59 15:59 Intake Total 100 / 100 0 / 0 Output Total 100 / 100 550 / 550 0 / 0 Balance 0 / 0 -550 / -550 0 / 0 Intake: Oral 100 / 100 0 / 0 Output: Urine 100 / 100 550 / 550 0 / 0 Other: # Voids 1 Weight 63.3 kg Patient Weight 01/19/18 23:59 Weight 63.3 kg - General Appearance General appearance: well-developed, well-nourished, appears started age Neck: no JVD, no thyromegaly, no carotid bruit, supple Respiratory: clear Cardiology: no murmurs, no rub, no gallops, no edema, regular rate, regular rhythm, normal S1, normal S2 Gastrointestinal: normoactive bowel sounds, no tenderness, no guarding, no organomegaly, no masses Integumentary: no rash, warm and dry Neurologic: no focal deficit, no asterixis, alert and oriented x3, reflexes 2+ and symmetric, CN 3-12 intact Musculoskeletal: no deformities, no erythema, no cyanosis, no clubbing Psychiatric: mood/affect appropriate, cooperative Results - Lab Results 01/19/18 04:00 01/19/18 04:00 Most recent lab results Calcium 9.0 mg/dL (8.6-10.3) 01/19/18 04:00 Magnesium 1.9 mg/dL (1.6-2.6) 01/19/18 04:00 Consult Discharge Plan - Plan Referrals: Aidna Amador MD [Primary Care Provider] -
--- NOTE | 2018-01-19 17:31 | Internal Med Progress Note ---
<Marianne Allen - Last Filed: 01/19/18 18:31> Hospitalist Progress Note - Encounter Date of Encounter: 01/19/18 Time of Encounter: 10:45 - Subjective Interval History: Today, hospital day 1, she states that she is feeling well and has no complaints. She is at times a poor historian due to dementia. She denies continued weakness, difficulty with speech, difficulty swallowing, headache, dizziness, presyncope, fever, chills, chest pain, sortness of breath, abdominal pain, dysuria, dysphagia. She admits to frequency. She states that the weakness she experienced during falls over the past few days has completely resolved. When questioned about a lesion on her right forehead, she states that it is not due to a recent fall, but that she picks at the lesion when it scabs over. - Exam Vitals: Temp Pulse Resp BP Pulse Ox 97.4 F L 60 16 162/88 95 01/19/18 16:16 01/19/18 16:16 01/19/18 16:16 01/19/18 16:16 01/19/18 16:16 Exam: General: Resting comfortably, in no acute distress, alert, orientated to person , season and place, pleasant. HEENT: Small lesion above right eyebrow, patient was pickiing at lesion during exam. Normocephalic, no sign of bruising. EOMI, PERRL, mucus membranes moist. Neck soft, supple, trachea midline, no cervical lymphadenopathy. Cardio: Irregular heart rate, no murmurs, rubs or gallops. Normal S1, S2. No carotid bruits. Pulmonary: No wheezes, rales or rhonchi. No accessory respiratory muscle use. Abdomen: Soft, non tender, non distended, normal bowel sounds, no guarding, rebound or rigidity. No CVA or suprapubic tenderness. Extremities: Radial and dorsal pedis pulses 2+ and symmetrical, normal capillary refill, no clubbing. No peripheral edema or calf tenderness. Neuro: CN 2-12 intact, no focal deficits. Strength intact, motor intact, sensation intact. Heel to michelle intact. Psych: Normal mood and affect, answers questions appropriately - Assessment and Plan (1) Transient neurological symptoms Current Visit: Yes Status: Acute Assessment and Plan: Per daughter: expressive aphasia, bilateral lower extremity weakness, falls x 3 over past 4 days. Symptoms of expressive aphasia and weakness have resolved Hx dementia and current UTI CT head shows no acute intracranial abnormality. MRI shows two small cerebral infarcts, most likely subacute in left frontal and parietal lobes, no intracranial hemorrhage or mass lesion. Small remote cerebellar lacunar infarcts. Neuro recs: restart home medications for hypertension, start statin therapy. Started Atorvastatin 40 mg. Continue neuro checks Fall risk, up with assist (2) UTI (urinary tract infection) Current Visit: Yes Status: Acute Assessment and Plan: U/A 01/18/18: Positive nitrite, leukocyte esterase, 3-5 WBC, positive squamous epithelial cells, moderate bacteria Day 2 of rocephin Cultures pending (3) Acute congestive heart failure Current Visit: Yes Status: Acute Assessment and Plan: Acute congestive heart failure BNP 384 on admission. No history of CHF CXR 01/18/18: Findings suggest congestive heart failure. Bibasilar hypoaeration 40 mg IV Lasix was given yesterday, output today -550 ECHO: LVEF 40-45%. Global left ventricular systolic dysfunction. Indeterminate diastolic function. Severely dilated left atrium. Mild mitral regurgitation. Moderate pulmonary hypertension. Neuro recs: continue lasix PRN Cardiac diet (4) Atrial fibrillation Current Visit: Yes Status: Chronic Assessment and Plan: Chronic EKG 01/18/18: atrial fibrillation with ventricular rate of 70. QRS 92. QTC 426. Moderate ST depression Continue home med xarelto (5) Dementia Current Visit: Yes Status: Chronic Assessment and Plan: Chronic alert and orientated to exam to person, place and season continue home med namenda (6) HTN (hypertension) Current Visit: Yes Status: Chronic Assessment and Plan: Chronic Home medications of metoprolol and lisinopril were restarted Per nephrology recs: hydralazine 10 mg IV if systolic BP greater than 180. (7) Anxiety Current Visit: Yes Status: Chronic Assessment and Plan: Chronic Continue home medications (8) CKD (chronic kidney disease) stage 4, GFR 15-29 ml/min Current Visit: Yes Status: Chronic Assessment and Plan: Chronic historically GFR is 18- 37 and creatinine is 1.5- 2.58, at baseline today continue to monitor kidney function nephrology recs: lasix PRN, home med lisinopril, and hydralazine PRN confirm with nephrology about xarelto, as creatinine clearance may exclude it as a medication to continue for atrial fibrillation. May need to switch to coumadin vs eliquis as alternative DVT Prophylaxis: Continue home med xarelto - Time Spent with Patient Total time spent is greater than 50% in coordination of care (as documented) at patient's floor/unit and/or counseling patient: 25 - 35 minutes Internal Medicine: Result - Labs CBC & Chem 7: 01/19/18 04:00 01/19/18 04:00 Labs: Short CBC 01/19/18 Range/Units 04:00 WBC 7.8 (4.3-11.1) K/mcL Hgb 13.9 (11.5-15.4) g/dL Hct 41.8 (35.3-44.9) % Plt Count 204 (140-400) K/mcL Neutrophils # 5.3 (1.6-8.9) K/mcL BMP 01/19/18 04:00 Sodium 140 Potassium 3.6 Chloride 104 Carbon Dioxide 26 BUN 34 H Creatinine 1.57 H Glucose 108 H Calcium 9.0 Liver Function 01/19/18 Range/Units 04:00 Total Bilirubin 0.6 (0.3-1.0) mg/dL AST 18 (13-39) Units/L ALT 10 (7-52) Units/L Alkaline Phosphatase 70 (34-104) Units/L Albumin 3.6 (3.5-5.7) g/dL - ABG Interpretation ABG results: PT/INR, D-dimer PT 18.8 Seconds (9.4-12.1) H 01/18/18 13:19 Consult Discharge Plan - Plan Referrals: Aidan Amador MD [Primary Care Provider] - <Kiet Latif - Last Filed: 01/19/18 18:58> Hospitalist Progress Note - Encounter Date of Encounter: 01/19/18 - Exam Vitals: Temp Pulse Resp BP Pulse Ox 97.4 F L 60 16 162/88 95 01/19/18 16:16 01/19/18 16:16 01/19/18 16:16 01/19/18 16:16 01/19/18 16:16 - Assessment and Plan (1) Stroke Current Visit: Yes Status: Acute (2) Frequent falls Current Visit: Yes Status: Acute Assessment and Plan: PT rec SNF (3) UTI (urinary tract infection) Current Visit: Yes Status: Acute (4) Transient neurological symptoms Current Visit: Yes Status: Acute (5) Acute congestive heart failure Current Visit: Yes Status: Acute (6) DVT prophylaxis Current Visit: Yes Status: Acute (7) Atrial fibrillation Current Visit: Yes Status: Chronic (8) Dementia Current Visit: Yes Status: Chronic (9) HTN (hypertension) Current Visit: Yes Status: Chronic (10) Anxiety Current Visit: Yes Status: Chronic (11) CKD (chronic kidney disease) stage 4, GFR 15-29 ml/min Current Visit: Yes Status: Chronic - Time Spent with Patient Total time spent is greater than 50% in coordination of care (as documented) at patient's floor/unit and/or counseling patient: Internal Medicine: Result - Labs CBC & Chem 7: 01/19/18 04:00 01/19/18 04:00 Labs: Short CBC 01/19/18 Range/Units 04:00 WBC 7.8 (4.3-11.1) K/mcL Hgb 13.9 (11.5-15.4) g/dL Hct 41.8 (35.3-44.9) % Plt Count 204 (140-400) K/mcL Neutrophils # 5.3 (1.6-8.9) K/mcL BMP 01/19/18 04:00 Sodium 140 Potassium 3.6 Chloride 104 Carbon Dioxide 26 BUN 34 H Creatinine 1.57 H Glucose 108 H Calcium 9.0 Liver Function 01/19/18 Range/Units 04:00 Total Bilirubin 0.6 (0.3-1.0) mg/dL AST 18 (13-39) Units/L ALT 10 (7-52) Units/L Alkaline Phosphatase 70 (34-104) Units/L Albumin 3.6 (3.5-5.7) g/dL - ABG Interpretation ABG results: PT/INR, D-dimer PT 18.8 Seconds (9.4-12.1) H 01/18/18 13:19 - Attending Attestation I examined this patient and my medical decision-making was reviewed with the Resident Physician on 01/19/18. I agree with the documented findings, disposition and treatment plan as described except to the extent set forth below. Ms Marcos is currently admitted for acute CVA and UTI. She remains moderate to high risk due to potential for worsening clinical status. Ms Marcos is feeling somewhat better today. No fever or chills. Still feels weak. No CP or SOB. Tolerating meds. Exam alert Comfortable Mucus membranes dry Heart irreg Lungs diminished Abd soft No edema I/P 1. CVA 2. HTN Further diagnoses and plan as above. <Marianne Allen - Last Filed: 01/19/18 18:31> (2) UTI (urinary tract infection) Qualifiers: Urinary tract infection type: site unspecified Hematuria presence: without hematuria Qualified Code(s): N39.0 - Urinary tract infection, site not specified (3) Acute congestive heart failure Qualifiers: Heart failure type: unspecified Qualified Code(s): I50.9 - Heart failure, unspecified (4) Atrial fibrillation Qualifiers: Atrial fibrillation type: chronic Qualified Code(s): I48.2 - Chronic atrial fibrillation (5) Dementia Qualifiers: Dementia type: unspecified type Dementia behavioral disturbance: without behavioral disturbance Qualified Code(s): F03.90 - Unspecified dementia without behavioral disturbance (6) HTN (hypertension) Qualifiers: Hypertension type: essential hypertension Qualified Code(s): I10 - Essential (primary) hypertension <Kiet Latif - Last Filed: 01/19/18 18:58> (1) Stroke Qualifiers: CVA mechanism: embolism Precerebral and cerebral artery: middle cerebral artery Laterality of affected vessel: left Qualified Code(s): I63.412 - Cerebral infarction due to embolism of left middle cerebral artery (3) UTI (urinary tract infection) Qualifiers: Urinary tract infection type: acute cystitis Hematuria presence: without hematuria Qualified Code(s): N30.00 - Acute cystitis without hematuria (5) Acute congestive heart failure Qualifiers: Heart failure type: systolic Qualified Code(s): I50.21 - Acute systolic ( congestive) heart failure (7) Atrial fibrillation Qualifiers: Atrial fibrillation type: chronic Qualified Code(s): I48.2 - Chronic atrial fibrillation (8) Dementia Qualifiers: Dementia type: unspecified type Dementia behavioral disturbance: without behavioral disturbance Qualified Code(s): F03.90 - Unspecified dementia without behavioral disturbance (9) HTN (hypertension) Qualifiers: Hypertension type: essential hypertension Qualified Code(s): I10 - Essential (primary) hypertension
[2018-01-19] MEDS: rOPINIRole 1 MG TABLET PO SCH (20:42)
[2018-01-19] MEDS: cefTRIAXone 1,000 MG in Water for inj. (sterile) 20 ML 10 ML IVP SCH (20:43)
[2018-01-20 04:19] LABS: Basophils # 0.1 K/mcL (0.0-0.2); Basophils % 0.6 %; Eosinophils # 0.2 K/mcL (0.0-0.6); Eosinophils % 2.1 %; Hematocrit 40.9 % (35.3-44.9); Hemoglobin 13.5 g/dL (11.5-15.4); Immature Granulocytes % 0.4 % (0-4); Lymphocytes # 1.6 K/mcL (0.6-4.6); Lymphocytes % 19.9 %; Mean Corpuscular Hemoglobin 29.9 pg (28.0-33.3); Mean Corpuscular Volume 90.7 fL (83.0-100.0); Mean Platelet Volume 10.7 fL (9.4-12.4); Monocytes % 11.9 %; Neutrophils # 5.3 K/mcL (1.6-8.9); Platelet Count 209 K/mcL (140-400); Red Blood Count 4.51 M/mcL (3.82-4.97); Red Cell Distribution Width 14.1 % (11.5-14.5); Segmented Neutrophils % 65.1 %
[2018-01-20 04:35] LABS: Albumin 3.4 g/dL (3.5-5.7); Albumin/Globulin Ratio 1.3 (1.1-2.2); Bilirubin,Total 0.5 mg/dL (0.3-1.0); Calcium 8.7 mg/dL (8.6-10.3); Globulin 2.6 g/dL (2.4-3.5); Potassium 3.8 mEq/L (3.5-5.1)
[2018-01-20] MEDS: Famotidine 20 MG TABLET PO SCH (08:52)
[2018-01-20] MEDS: carBAMazepine 200 MG TABLET PO SCH ×2 (08:53→21:50)
[2018-01-20] MEDS: Cyanocobalamin (B-12) 1,000 MCG TABLET PO SCH (08:53)
[2018-01-20] MEDS: *HR* Rivaroxaban 15 MG TABLET PO SCH (08:53)
--- NOTE | 2018-01-20 09:17 | Neurology Progress Note ---
Date of Encounter: 01/20/18 Time of Encounter: 09:11 Assessment and Plan (1) Encephalopathy acute Current Visit: Yes Status: Acute Patient now appears to be back to her normal baseline status. She does have dementia, and is usually pleasantly confused at baseline. I believe that she was acutely altered secondary to the combined effects of hypertensive encephalopathy along with urinary tract infection. The MRI scan of the brain revealed 2 small punctate infarcts on the left frontal, one on the left parietal region. These were certainly due to the elevated blood pressure however had no bearing on her clinical presentation. She has no focal or lateralized findings. The carbamazepine that she takes for trigeminal neuralgia was therapeutic and 9. At this juncture I believe that a custodial facility might be best for her. I believe that assisted living might not be quite appropriate for her. I will reevaluate her at your request. Subjective Interval history: The chart was reviewed, patient was seen and examined. She was sleeping quietly upon my entering the room. She was aroused to voice. She was pleasantly confused throughout much of my visit. First she thought she was at home, I told her that she was in the hospital and she ask which one. I told her [place] and she says "oh, it is my [place]." She is able to follow simple commands. Neurologic exam finds no focal or lateralized deficits. Carbamazepine level was within the normal range at 9. Objective - Constitutional Vitals: Temp Pulse Resp BP Pulse Ox 97.5 F L 82 16 173/100 94 01/20/18 07:41 01/20/18 07:41 01/20/18 07:41 01/20/18 07:41 01/20/18 07:41 - Neurological Exam Sensorimotor examination: Present: intact Motor examination - left side: 5/5: deltoids, biceps, triceps, wrist flexion, wrist extension, hip flexors, ecmo specialist, quadriceps, tibialis Anterior, toe extension (EHL), plantarflexion Sensation intact: Present: intact, light touch, temperature, vibration Mental Status Examination: Present: awake, alert, oriented to person, oriented to place, follows commands appropriately, demented, impaired memory, impaired cognition, MMSE (Oriented to time and place but did not know the persident, could spell world forward but not backwards, could do serial 7's x1, remembered 0/3 words, could repeat, name objects, and follow commands, ), not reliable historian Cranial nerve examination: Present: PERRL, EOMI, visual saldivar intact, sensory to face intact, no facial asymmetry is present, no dysarthria, soft palate elevates bilaterally upon phonation, flexes SCM and trapezius muscles symmetrically with full power, tongue protrudes midline, no atrophy or facial fasiculations present Cerebellar examination: Present: no dysmetria Results - Laboratory Findings CBC and BMP: 01/20/18 03:46 01/20/18 03:46 Abnormal lab findings: Abnormal lab results PT 18.8 Seconds (9.4-12.1) H 01/18/18 13:19 BUN 38 mg/dL (8-23) H 01/20/18 03:46 Creatinine 1.76 mg/dL (0.60-1.20) H 01/20/18 03:46 Est GFR ( Amer) 33 (> 60) L 01/20/18 03:46 Est GFR (Non-Af Amer) 27 (> 60) L 01/20/18 03:46 Glucose 107 mg/dL (70-105) H 01/20/18 03:46 B-Natriuretic Peptide 384 pg/mL (Less than 100) H 01/18/18 13:19 Serum Total Protein 6.0 g/dL (6.4-8.9) L 01/20/18 03:46 Albumin 3.4 g/dL (3.5-5.7) L 01/20/18 03:46 Triglycerides 150 mg/dL (< 150) H 01/19/18 04:00 HDL Cholesterol 33 mg/dL (40-59) L 01/19/18 04:00 Urine Nitrite Positive (Negative) A 01/18/18 14:03 Ur Leukocyte Esterase Small (Negative) H 01/18/18 14:03 Urine Microscopic WBC 3-5 per hpf (0-3) H 01/18/18 14:03 Ur Squamous Epith Cells Many per lpf (None-Few) H 01/18/18 14:03 Urine Bacteria Moderate per hpf (None-Few) H 01/18/18 14:03 Ur Culture Indicated? NO. (NO) A 01/18/18 14:03 Consult Discharge Plan - Plan Referrals: Aidan Amador MD [Primary Care Provider] -
--- NOTE | 2018-01-20 09:57 | Internal Med Progress Note ---
Hospitalist Progress Note - Encounter Date of Encounter: 01/20/18 Time of Encounter: 09:55 - Subjective Interval History: Ms Marcos is currently admitted for acute mental status change related to UTI and uncontrolled HTN. She remains moderate to high risk due to potential for worsening clinical status. Ms Marcos feels OK at this time. Denies CP, SOB or RAMIREZ. BP is still markedly elevated. No fever or chills. No GI issues. Does not remember what she ate for breakfast. Denies visual changes. Appreciate neurology input. - Exam Vitals: Temp Pulse Resp BP Pulse Ox 97.5 F L 82 16 173/100 94 01/20/18 07:41 01/20/18 07:41 01/20/18 07:41 01/20/18 07:41 01/20/18 07:41 Exam: General: WN, WH patient. Comfortable in bed. Head: NC. Atraumatic EENT: Mucus membranes moist. No lesion. Neck: Supple. Good ROM. Heart: Irreg. Not tachycardic. No murmur heard Lungs: Clear bilaterally with no rales, wheeze or rhonchi Abd: Soft and nontender Ext: No edema. Moderate OA. Pulses palpable Neuro: Alert. Oriented to person and place. No focal deficit. - Assessment and Plan (1) Hypertensive encephalopathy Current Visit: Yes Status: Acute Assessment and Plan: Pt appears to be at baseline mental status at this time. BP remains markedly elevated. Adjusting meds. (2) HTN (hypertension) Current Visit: Yes Status: Chronic Assessment and Plan: Continues to be markedly elevated. Will adjust medications to gain better control. (3) Stroke Current Visit: Yes Status: Acute Assessment and Plan: Pt with recent subacute strokes most likely related to uncontrolled HTN. Will aggressively control blood pressure as able. PT/OT recommends SNF. Awaiting precert at this time. (4) Frequent falls Current Visit: Yes Status: Acute Assessment and Plan: Awaiting precert for SNF. (5) UTI (urinary tract infection) Current Visit: Yes Status: Acute Assessment and Plan: Culture contaminated with no significant growth. Currently on IV Rocephin. Will continue course of abx for 3-5 days. (6) Acute congestive heart failure Current Visit: Yes Status: Ruled-out Assessment and Plan: Echo shows normal EF. BNP mildly elevated on admit. No symptoms at this time. Continue supportive care. (7) Atrial fibrillation Current Visit: Yes Status: Chronic Assessment and Plan: Chronic issue. Currently rate controlled and on anticoagulation. Will change to Eliquis due to her renal function. (8) Dementia Current Visit: Yes Status: Chronic Assessment and Plan: Hx of chronic dementia. Continue patient's Namenda. Falls/safety precautions and up with assist. (9) Anxiety Current Visit: Yes Status: Chronic Assessment and Plan: Hx of chronic anxiety. (10) CKD (chronic kidney disease) stage 4, GFR 15-29 ml/min Current Visit: Yes Status: Chronic Assessment and Plan: Renal function appears to be at baseline and stable. Avoid nephrotoxins. DVT Prophylaxis: Eliquis - Time Spent with Patient Total time spent is greater than 50% in coordination of care (as documented) at patient's floor/unit and/or counseling patient: Plan of Care Discussed with: nurse Internal Medicine: Result - Labs CBC & Chem 7: 01/20/18 03:46 01/20/18 03:46 Labs: Short CBC 01/20/18 Range/Units 03:46 WBC 8.2 (4.3-11.1) K/mcL Hgb 13.5 (11.5-15.4) g/dL Hct 40.9 (35.3-44.9) % Plt Count 209 (140-400) K/mcL Neutrophils # 5.3 (1.6-8.9) K/mcL BMP 01/20/18 03:46 Sodium 139 Potassium 3.8 Chloride 105 Carbon Dioxide 25 BUN 38 H Creatinine 1.76 H Glucose 107 H Calcium 8.7 Liver Function 01/20/18 Range/Units 03:46 Total Bilirubin 0.5 (0.3-1.0) mg/dL AST 18 (13-39) Units/L ALT 10 (7-52) Units/L Alkaline Phosphatase 68 (34-104) Units/L Albumin 3.4 L (3.5-5.7) g/dL - ABG Interpretation ABG results: PT/INR, D-dimer PT 18.8 Seconds (9.4-12.1) H 01/18/18 13:19 Consult Discharge Plan - Plan Referrals: Aidan Amador MD [Primary Care Provider] - (2) HTN (hypertension) Qualifiers: Hypertension type: essential hypertension Qualified Code(s): I10 - Essential (primary) hypertension (3) Stroke Qualifiers: CVA mechanism: thrombosis Precerebral and cerebral artery: middle cerebral artery Laterality of affected vessel: left Qualified Code(s): I63.312 - Cerebral infarction due to thrombosis of left middle cerebral artery (5) UTI (urinary tract infection) Qualifiers: Urinary tract infection type: acute cystitis Hematuria presence: without hematuria Qualified Code(s): N30.00 - Acute cystitis without hematuria (6) Acute congestive heart failure Qualifiers: Heart failure type: systolic Qualified Code(s): I50.21 - Acute systolic ( congestive) heart failure (7) Atrial fibrillation Qualifiers: Atrial fibrillation type: chronic Qualified Code(s): I48.2 - Chronic atrial fibrillation (8) Dementia Qualifiers: Dementia type: unspecified type Dementia behavioral disturbance: without behavioral disturbance Qualified Code(s): F03.90 - Unspecified dementia without behavioral disturbance
--- NOTE | 2018-01-20 11:46 | Nephrology Progress Note ---
Date of Encounter: 01/20/18 Time of Encounter: 09:15 - Assessment and Plan (1) CKD (chronic kidney disease) stage 4, GFR 15-29 ml/min Current Visit: Yes Status: Chronic Patient's creatinine and renal function at baseline. No signs of current pedal edema noted. Continue lisinopril 10mg daily and metoprolol 25mg daily. As there are no signs of edema, lasix only as needed for volume overload. She is also to take her normal dose of Lasix prior to hemodialysis Thursday. We will start her on hydralazine 10 mg by mouth 3 times a day today and continue outpatient. Patient follows up outpatient with Dr. Wray. Plan to follow-up after discharge. (2) HTN (hypertension) Current Visit: Yes Status: Chronic Continue with lisinopril 10 mg daily, metoprolol 25 mg daily. Start with hydralazine 10 mg 3 times a day. IV hydralazine as needed for systolic blood pressure greater than 180. Qualifiers: Hypertension type: essential hypertension Qualified Code(s): I10 - Essential (primary) hypertension (3) Atrial fibrillation Current Visit: Yes Status: Chronic Xeralto is not the best choice for her due to her CKD. Agree with primary team to switch to Eliquis. Patient and family is aware and agreeable. Qualifiers: Atrial fibrillation type: chronic Qualified Code(s): I48.2 - Chronic atrial fibrillation Subjective Principal diagnosis: Stage 4 CKD Interval history: No overnight events. Blood pressure continues to be above baseline but systolic < 180. Patient has dementia and subjective is limited. Daughter is not at bedside. Patient does deny headaches, blurry vision, nausea, vomiting. She also states that she is doing better today. She is able to tolerate by mouth intake. Able to void without difficulty. Denies dysuria and hematuria. Objective - Vital Signs Vital signs: Vital Signs Temp Pulse Resp BP Pulse Ox 01/20/18 07:41 97.5 F L 82 16 173/100 94 01/20/18 05:00 98.2 F 74 14 161/103 92 01/19/18 20:00 97.4 F L 74 16 181/106 95 01/19/18 16:16 97.4 F L 60 16 162/88 95 01/19/18 14:56 146/96 01/19/18 12:07 97.5 F L 85 16 152/118 95 Intake and Output 01/19/18 01/20/18 01/20/18 23:59 07:59 15:59 Intake Total 0 / 0 0 / 0 Output Total 0 / 0 Balance 0 / 0 0 / 0 Intake: Oral 0 / 0 0 / 0 Output: Urine 0 / 0 Other: # Voids 1 Weight 62.9 kg Patient Weight 01/20/18 23:59 Weight 62.9 kg - General Appearance General appearance: Present: well-developed, well-nourished, appears started age Neck: Present: no JVD, no thyromegaly, no carotid bruit, supple Respiratory: Present: clear Cardiology: Present: no murmurs, no rub, no gallops, no edema, regular rate, regular rhythm, normal S1, normal S2 Gastrointestinal: Present: normoactive bowel sounds, no tenderness, no guarding Integumentary: Present: no rash, warm and dry Neurologic: Present: no focal deficit, no asterixis Musculoskeletal: Present: no deformities, no erythema, no cyanosis, no clubbing Psychiatric: Present: mood/affect appropriate, cooperative - Lab 01/20/18 03:46 01/20/18 03:46 Most recent lab results Calcium 8.7 mg/dL (8.6-10.3) 01/20/18 03:46 Magnesium 1.9 mg/dL (1.6-2.6) 01/19/18 04:00 Consult Discharge Plan - Plan Referrals: Aidan Amador MD [Primary Care Provider] -
[2018-01-20] MEDS: amLODIPine 5 MG TABLET PO SCH (12:08)
[2018-01-20] MEDS: Acetaminophen 325 MG TABLET PO PRN (19:31)
[2018-01-20] MEDS: cefTRIAXone 1,000 MG in Water for inj. (sterile) 20 ML 10 ML IVP SCH (21:49)
[2018-01-20] MEDS: rOPINIRole 1 MG TABLET PO SCH (21:49)
[2018-01-20] MEDS: Apixaban 5 MG TABLET PO SCH (21:50)
[2018-01-21] MEDS: clonazePAM 0.5 MG TABLET PO PRN ×2 (00:45→21:01)
[2018-01-21 04:24] LABS: Basophils # 0.1 K/mcL (0.0-0.2); Basophils % 0.8 %; Eosinophils # 0.2 K/mcL (0.0-0.6); Eosinophils % 2.6 %; Hematocrit 40.6 % (35.3-44.9); Hemoglobin 13.3 g/dL (11.5-15.4); Immature Granulocytes % 0.5 % (0-4); Lymphocytes # 1.5 K/mcL (0.6-4.6); Lymphocytes % 20.7 %; Mean Corpuscular HGB Conc 32.8 g/dL (31.6-35.5); Mean Corpuscular Hemoglobin 30.1 pg (28.0-33.3); Mean Corpuscular Volume 91.9 fL (83.0-100.0); Mean Platelet Volume 10.8 fL (9.4-12.4); Monocytes % 12.8 %; Neutrophils # 4.7 K/mcL (1.6-8.9); Platelet Count 210 K/mcL (140-400); Red Blood Count 4.42 M/mcL (3.82-4.97); Red Cell Distribution Width 13.8 % (11.5-14.5); Segmented Neutrophils % 62.6 %
[2018-01-21 04:38] LABS: Calcium 8.6 mg/dL (8.6-10.3); Potassium 4.1 mEq/L (3.5-5.1)
[2018-01-21] MEDS ORDERED: hydrALAZINE 10 MG TABLET PO SCH (09:30)
[2018-01-21] MEDS: carBAMazepine 200 MG TABLET PO SCH ×2 (10:09→20:59)
[2018-01-21] MEDS: Famotidine 20 MG TABLET PO SCH (10:10)
[2018-01-21] MEDS: amLODIPine 5 MG TABLET PO SCH (10:11)
[2018-01-21] MEDS: Apixaban 5 MG TABLET PO SCH ×2 (10:12→21:00)
[2018-01-21] MEDS: Cyanocobalamin (B-12) 1,000 MCG TABLET PO SCH (10:12)
[2018-01-21] MEDS ORDERED: hydrALAZINE 25 MG TABLET PO PRN (11:24)
--- NOTE | 2018-01-21 12:38 | Nephrology Progress Note ---
Date of Encounter: 01/21/18 Time of Encounter: 09:30 - Assessment and Plan (1) CKD (chronic kidney disease) stage 4, GFR 15-29 ml/min Current Visit: Yes Status: Chronic Patient's creatinine and renal function at baseline. No signs of current pedal edema noted. Continue lisinopril 10mg daily and metoprolol 25mg daily Hydralazine 10mg TID. As there are no signs of edema, lasix only as needed for volume overload. She is also to take her normal dose of Lasix prior to hemodialysis Thursday. We will start her on hydralazine 10 mg by mouth 3 times a day today and continue outpatient. Expect improvement and likely discharge tomorrow. Patient follows up outpatient with Dr. Wray. Will follow-up outpatient. (2) HTN (hypertension) Current Visit: Yes Status: Chronic Continue with lisinopril 10 mg daily, metoprolol 25 mg daily and hydralazine TID. IV hydralazine as needed for systolic blood pressure greater than 180. Qualifiers: Hypertension type: essential hypertension Qualified Code(s): I10 - Essential (primary) hypertension (3) Atrial fibrillation Current Visit: Yes Status: Chronic Stable. Continue with Eloquis. Qualifiers: Atrial fibrillation type: chronic Qualified Code(s): I48.2 - Chronic atrial fibrillation Subjective Principal diagnosis: Stage 4 CKD Interval history: No overnight events. Blood pressure continues to be above baseline but systolic < 180. Patient has dementia and subjective is limited. Daughter is not at bedside. Patient does deny headaches, blurry vision, nausea, vomiting. She also states that she is doing better today. She is able to tolerate by mouth intake. Able to void without difficulty. Denies dysuria and hematuria. Hydrazine TID was not ordered yesterday. Objective - Vital Signs Vital signs: Vital Signs Temp Pulse Resp BP Pulse Ox 01/21/18 11:00 97.7 F 80 15 158/102 94 01/21/18 07:00 97.5 F L 69 15 172/102 96 01/20/18 23:41 97.5 F L 89 17 150/107 94 01/20/18 19:25 94 16 162/93 01/20/18 15:46 97.6 F 78 16 176/88 93 Intake and Output 01/20/18 01/21/1801/21/18 23:59 07:59 15:59 Intake Total 240 / 240 0 / 0 120 / 120 Output Total 100 / 100 0 / 0 150 / 150 Balance 140 / 140 0 / 0 -30 / -30 Intake: Oral 240 / 240 0 / 0 120 / 120 Output: Urine 100 / 100 0 / 0 150 / 150 Other: Meal Dinner Breakfast Percent of Meal Consumed 90% 100% Weight 63.9 kg Patient Weight 01/21/18 23:59 Weight 63.9 kg - General Appearance General appearance: Present: well-developed, well-nourished, appears started age Neck: Present: no JVD, no thyromegaly, no carotid bruit, supple Respiratory: Present: no kyphosis, no scoliosis Cardiology: Present: no murmurs, no rub, no gallops, no edema, regular rate, regular rhythm, normal S1, normal S2 Gastrointestinal: Present: normoactive bowel sounds, no tenderness Integumentary: Present: no rash, warm and dry Neurologic: Present: no focal deficit, no asterixis, alert and oriented x3, reflexes 2+ and symmetric, gait normal, strength 5/5 Musculoskeletal: Present: no deformities, no erythema, no cyanosis, no clubbing Psychiatric: Present: mood/affect appropriate, cooperative - Lab 01/21/18 03:40 01/21/18 03:40 Most recent lab results Calcium 8.6 mg/dL (8.6-10.3) 01/21/18 03:40 Magnesium 1.9 mg/dL (1.6-2.6) 01/19/18 04:00 Consult Discharge Plan - Plan Instructions: Heart Failure (DC), Atrial Fibrillation (DC), Urinary Tract Infection in Women (DC), Fall Prevention for Older Adults (GEN), Ischemic Stroke (DC), Ischemic Stroke (GEN), Chronic Hypertension (DC), Anxiety (DC) Referrals: Aidan Amador MD [Primary Care Provider] -
[2018-01-21] MEDS: Acetaminophen 325 MG TABLET PO PRN (14:19)
[2018-01-21] MEDS ORDERED: rOPINIRole 1 MG TABLET PO ONE (16:00)
--- NOTE | 2018-01-21 16:30 | Internal Med Progress Note ---
<Marianne Allen - Last Filed: 01/21/18 17:10> Hospitalist Progress Note - Encounter Date of Encounter: 01/21/18 Time of Encounter: 10:00 - Subjective Interval History: Today, hospital day 3, she states that she is feeling quite well. She denies any dizziness, headache, fever, chills, vausea, vomiting, chest pain, shortness of breath, abdominal pain, dysuria, frequency or weakness in any extremity. She was orientated to person and place during our interview. Today she stated that she was unsure of why she was in the hospital, I was able to explain the history of her presentation and admission to her understanding. - Exam Vitals: Temp Pulse Resp BP Pulse Ox 97.7 F 89 16 170/96 94 01/21/18 15:47 01/21/18 15:47 01/21/18 15:47 01/21/18 15:47 01/21/18 15:47 Exam: General: Resting comfortably, in no acute distress, AAOx2, pleasant HEENT: Normocephalic, EOMI, PERRL, mucus membranes moist. Neck soft, supple, trachea midline, no cervical lymphadenopathy. Cardio: RRR, no murmurs, rubs or gallops. Normal S1, S2. No carotid bruits. Pulmonary: No wheezes, rales or rhonchi. No accessory respiratory muscle use. Abdomen: Soft, non tender, non distended, normal bowel sounds, no guarding, rebound or rigidity. No CVA or suprapubic tenderness. Extremities: Radial and dorsal pedis pulses 2+ and symmetrical, normal capillary refill, no clubbing. No peripheral edema or calf tenderness. Neuro: CN 2-12 intact, no focal deficits. Strength, motor and sensation intact. Psych: Normal mood and affect - Assessment and Plan (1) Hypertensive encephalopathy Current Visit: Yes Status: Acute Assessment and Plan: Presented with expressive aphasia, altered mental status, systolic BP in the 200 's. will continue to improve control of blood pressure. (2) HTN (hypertension) Current Visit: Yes Status: Chronic Assessment and Plan: Uncontrolled, currently at 170/96 Amlodipine to stay at current dose due to renal effects Hydralazine increased to 25 mg TID, also available PRN in event systolic rises over 180 Metoprolol switched to 12.5 mg qd Continue to monitor (3) Stroke Current Visit: Yes Status: Acute Assessment and Plan: Subacute stroke most likely related to uncontrolled HTN. Continue BP control Precertification for [facility] home approved, will be discharged once blood pressure better controlled. (4) UTI (urinary tract infection) Current Visit: Yes Status: Acute Assessment and Plan: U/A shows Positive nitrite, leukocyte esterase, 3-5 WBC, positive squamous epithelial cells, moderate bacteria Culture contaminated with no significant growth IV rocephin discontinued, given 4 days of treatment total. (5) Acute congestive heart failure Current Visit: Yes Status: Ruled-out Assessment and Plan: Improved, lungs clear to auscultation bilaterally, no lower extremity edema. No prior history of CHF ECHO on 01/18/18 LVEF 40-45%, global left ventricular systolic dysfunction, severely dilated left atrium, moderate pulmonary HTN (6) Atrial fibrillation Current Visit: Yes Status: Chronic Assessment and Plan: Chronic, was switched from xarelto to eliquis due to renal function (7) CKD (chronic kidney disease) stage 4, GFR 15-29 ml/min Current Visit: Yes Status: Chronic Assessment and Plan: Renal function at baseline Continue to monitor Nephro recs: due to renal function, no change in amlodipine dose as well and switch from xarelto to eliquis. (8) Dementia Current Visit: Yes Status: Chronic Assessment and Plan: Chronic Continue home med Namenda (9) Anxiety Current Visit: Yes Status: Chronic Assessment and Plan: Chronic, Continue home meds tegretol, klonopin, Zoloft (10) Frequent falls Current Visit: Yes Status: Acute Assessment and Plan: Ambulate with assistance, will be discharged to [facility]. DVT Prophylaxis: eliquis - Time Spent with Patient Total time spent is greater than 50% in coordination of care (as documented) at patient's floor/unit and/or counseling patient: Internal Medicine: Result - Labs CBC & Chem 7: 01/21/18 03:40 01/21/18 03:40 Labs: Short CBC 01/21/18 Range/Units 03:40 WBC 7.5 (4.3-11.1) K/mcL Hgb 13.3 (11.5-15.4) g/dL Hct 40.6 (35.3-44.9) % Plt Count 210 (140-400) K/mcL Neutrophils # 4.7 (1.6-8.9) K/mcL BMP 01/21/18 03:40 Sodium 139 Potassium 4.1 Chloride 106 Carbon Dioxide 24 BUN 36 H Creatinine 1.61 H Glucose 103 Calcium 8.6 - ABG Interpretation ABG results: PT/INR, D-dimer PT 18.8 Seconds (9.4-12.1) H 01/18/18 13:19 - Impressions Impressions Lumbar Spine X-Ray 01/20/18 18:24 IMPRESSION: 1. No definite acute fracture. 2. Chronic T12 compression fracture. 3. Mild thoracic and moderate lumbar spondylosis. D/ / Shiva Vee MD / Shiva Vee MD Interpreting Provider: Shiva Vee MD Thoracic Spine X-Ray 01/20/18 18:24 IMPRESSION: 1. No definite acute fracture. 2. Chronic T12 compression fracture. 3. Mild thoracic and moderate lumbar spondylosis. D/ / Shiva Vee MD / Shiva Vee MD Interpreting Provider: Shiva Vee MD Consult Discharge Plan - Plan Instructions: Heart Failure (DC), Atrial Fibrillation (DC), Urinary Tract Infection in Women (DC), Fall Prevention for Older Adults (GEN), Ischemic Stroke (DC), Ischemic Stroke (GEN), Chronic Hypertension (DC), Anxiety (DC) Referrals: Aidan Amador MD [Primary Care Provider] - <Kiet Latif - Last Filed: 01/21/18 18:30> Hospitalist Progress Note - Encounter Date of Encounter: 01/21/18 - Exam Vitals: Temp Pulse Resp BP Pulse Ox 97.7 F 89 16 170/96 94 01/21/18 15:47 01/21/18 15:47 01/21/18 15:47 01/21/18 15:47 01/21/18 15:47 - Assessment and Plan (1) Hypertensive encephalopathy Current Visit: Yes Status: Resolved (2) HTN (hypertension) Current Visit: Yes Status: Chronic (3) Stroke Current Visit: Yes Status: Acute (4) Frequent falls Current Visit: Yes Status: Acute (5) UTI (urinary tract infection) Current Visit: Yes Status: Resolved (6) Acute congestive heart failure Current Visit: Yes Status: Ruled-out (7) Atrial fibrillation Current Visit: Yes Status: Chronic (8) Dementia Current Visit: Yes Status: Chronic (9) Anxiety Current Visit: Yes Status: Chronic (10) CKD (chronic kidney disease) stage 4, GFR 15-29 ml/min Current Visit: Yes Status: Chronic - Time Spent with Patient Total time spent is greater than 50% in coordination of care (as documented) at patient's floor/unit and/or counseling patient: Internal Medicine: Result - Labs CBC & Chem 7: 01/21/18 03:40 01/21/18 03:40 Labs: Short CBC 01/21/18 Range/Units 03:40 WBC 7.5 (4.3-11.1) K/mcL Hgb 13.3 (11.5-15.4) g/dL Hct 40.6 (35.3-44.9) % Plt Count 210 (140-400) K/mcL Neutrophils # 4.7 (1.6-8.9) K/mcL BMP 01/21/18 03:40 Sodium 139 Potassium 4.1 Chloride 106 Carbon Dioxide 24 BUN 36 H Creatinine 1.61 H Glucose 103 Calcium 8.6 - ABG Interpretation ABG results: PT/INR, D-dimer PT 18.8 Seconds (9.4-12.1) H 01/18/18 13:19 - Impressions Impressions Lumbar Spine X-Ray 01/20/18 18:24 IMPRESSION: 1. No definite acute fracture. 2. Chronic T12 compression fracture. 3. Mild thoracic and moderate lumbar spondylosis. D/ / Shiva Vee MD / Shiva Vee MD Interpreting Provider: Shiva Vee MD Thoracic Spine X-Ray 01/20/18 18:24 IMPRESSION: 1. No definite acute fracture. 2. Chronic T12 compression fracture. 3. Mild thoracic and moderate lumbar spondylosis. D/ / Shiva Vee MD / Shiva Vee MD Interpreting Provider: Shiva Vee MD - Attending Attestation I examined this patient and my medical decision-making was reviewed with the Resident Physician on 01/21/18. I agree with the documented findings, disposition and treatment plan as described except to the extent set forth below. Ms Marcos is currently admitted for acute encephalopathy and CVA. She continues to have markedly elevated BP. She remains moderate to high risk due to potential worsening clinical status. Ms Marcos is up in chair. She denies CP, SOB or other issue at this time. No fever or chills. BP very elevated still. Meds have been adjusted. Exam alert Comfortable at this time Mucus membranes dry Heart irreg Lungs clear at this time Abd soft No edema BP 166/106 by me. I/P 1. HTN - remains markedly elevated. Meds adjusted. 2. CVA Further diagnoses and plan as above. Hopefully we will be able to discharge her tomorrow. She is asymptomatic with BP currently but she is going to SNF and I am concerned she will return here quickly. <Marianne Allen - Last Filed: 01/21/18 17:10> (2) HTN (hypertension) Qualifiers: Hypertension type: essential hypertension Qualified Code(s): I10 - Essential (primary) hypertension (3) Stroke Qualifiers: CVA mechanism: thrombosis Precerebral and cerebral artery: middle cerebral artery Laterality of affected vessel: left Qualified Code(s): I63.312 - Cerebral infarction due to thrombosis of left middle cerebral artery (4) UTI (urinary tract infection) Qualifiers: Urinary tract infection type: acute cystitis Hematuria presence: without hematuria Qualified Code(s): N30.00 - Acute cystitis without hematuria (5) Acute congestive heart failure Qualifiers: Heart failure type: systolic Qualified Code(s): I50.21 - Acute systolic ( congestive) heart failure (6) Atrial fibrillation Qualifiers: Atrial fibrillation type: chronic Qualified Code(s): I48.2 - Chronic atrial fibrillation (8) Dementia Qualifiers: Dementia type: unspecified type Dementia behavioral disturbance: without behavioral disturbance Qualified Code(s): F03.90 - Unspecified dementia without behavioral disturbance <Kiet Latif - Last Filed: 01/21/18 18:30> (2) HTN (hypertension) Qualifiers: Hypertension type: essential hypertension Qualified Code(s): I10 - Essential (primary) hypertension (3) Stroke Qualifiers: CVA mechanism: thrombosis Precerebral and cerebral artery: middle cerebral artery Laterality of affected vessel: left Qualified Code(s): I63.312 - Cerebral infarction due to thrombosis of left middle cerebral artery (5) UTI (urinary tract infection) Qualifiers: Urinary tract infection type: acute cystitis Hematuria presence: without hematuria Qualified Code(s): N30.00 - Acute cystitis without hematuria (6) Acute congestive heart failure Qualifiers: Heart failure type: systolic Qualified Code(s): I50.21 - Acute systolic ( congestive) heart failure (7) Atrial fibrillation Qualifiers: Atrial fibrillation type: chronic Qualified Code(s): I48.2 - Chronic atrial fibrillation (8) Dementia Qualifiers: Dementia type: unspecified type Dementia behavioral disturbance: without behavioral disturbance Qualified Code(s): F03.90 - Unspecified dementia without behavioral disturbance
[2018-01-21] MEDS: hydrALAZINE 25 MG TABLET PO SCH (16:32)
[2018-01-21] MEDS ORDERED: rOPINIRole 1 MG TABLET PO SCH (21:00)
[2018-01-22] MEDS: hydrALAZINE 25 MG TABLET PO SCH ×2 (01:00→09:01)
[2018-01-22 05:20] LABS: Calcium 8.6 mg/dL (8.6-10.3); Potassium 4.3 mEq/L (3.5-5.1)
[2018-01-22] MEDS ORDERED: Metoprolol XL (24 HR) Succ 25 MG TAB.ER.24H PO SCH (09:00)
[2018-01-22] MEDS: amLODIPine 5 MG TABLET PO SCH (09:00)
[2018-01-22] MEDS: carBAMazepine 200 MG TABLET PO SCH (09:01)
[2018-01-22] MEDS: Cyanocobalamin (B-12) 1,000 MCG TABLET PO SCH (09:01)
[2018-01-22] MEDS: Apixaban 5 MG TABLET PO SCH (09:01)
[2018-01-22] MEDS: Famotidine 20 MG TABLET PO SCH (09:01)
[2018-01-22 11:46] VITALS: BP 140/92
--- NOTE | 2018-01-22 12:55 | Discharge Summary ---
<Marianne Allen - Last Filed: 01/22/18 13:30> Date of Encounter: 01/22/18 Time of Encounter: 10:00 - Discharge Diagnosis (1) Hypertensive encephalopathy Priority: Primary Status: Resolved (2) HTN (hypertension) Priority: Secondary Status: Chronic Qualifiers: Hypertension type: essential hypertension Qualified Code(s): I10 - Essential (primary) hypertension (3) Stroke Priority: Secondary Status: Acute Qualifiers: CVA mechanism: thrombosis Precerebral and cerebral artery: middle cerebral artery Laterality of affected vessel: left Qualified Code(s): I63.312 - Cerebral infarction due to thrombosis of left middle cerebral artery (4) UTI (urinary tract infection) Priority: Secondary Status: Resolved Qualifiers: Urinary tract infection type: acute cystitis Hematuria presence: without hematuria Qualified Code(s): N30.00 - Acute cystitis without hematuria (5) Acute congestive heart failure Priority: Secondary Status: Ruled-out Qualifiers: Heart failure type: systolic Qualified Code(s): I50.21 - Acute systolic ( congestive) heart failure (6) Atrial fibrillation Priority: Secondary Status: Chronic Qualifiers: Atrial fibrillation type: chronic Qualified Code(s): I48.2 - Chronic atrial fibrillation (7) CKD (chronic kidney disease) stage 4, GFR 15-29 ml/min Priority: Secondary Status: Chronic (8) Dementia Priority: Secondary Status: Chronic Qualifiers: Dementia type: unspecified type Dementia behavioral disturbance: without behavioral disturbance Qualified Code(s): F03.90 - Unspecified dementia without behavioral disturbance (9) Anxiety Priority: Secondary Status: Chronic (10) Frequent falls Priority: Secondary Status: Acute Hospital course: Ms. Marcos is a 88 year old female who presented 01/18/18 from assisted living facility for evaluation of slurred speech, generalized weakness, frequent falls over the past few days and bilateral lower extremity edema. She was found to be hypertensive at 197/114. Found to have subacute stroke, hypertensive encephalopathy and UTI. She has a past medical history of atrial fibrillation, hypertension, dementia, chronic kidney disease, left sided breast cancer, GERD and anxiety. EKG was done which showed atrial fibrillation without significant ST elevations or depression. NIHSS was done. CT head was done which showed no acute intracranial abnormality. MRI head was done which showed two subacute cerebral infarcts in left frontal and left parietal lobes without intracranial hemorrhage or mass lesion. Chest x-ray showed pleural effusion. Lumbar and thoracic spine x-ray showed no definite acute fracture, chronic T12 compression fracture, mild thoracic and moderate lumbar spondylosis. ECHO was performed which showed LVEF 40-45%. Global left ventricular systolic dysfunction. Indeterminate diastolic function. Severely dilated left atrium. Mild mitral regurgitation. Moderate pulmonary hypertension. Urinalysis done at admission was positive for a urinary tract infection and she was treated for four days with rocephin, urine culture was contaminated with no significant growth. Neurology was consulted and she was admitted. Neurological deficits of expressive aphasia and weakness were transient. BNP on admission was 384 on admission, no history of congestive heart failure and was fluid restricted and given 40 mg Lasix prn. Atorvastatin 40 mg qd was started. Nephrology was consulted to aid in management on hypertensive therapy, lisinopril 10 mg, metoprolol XL 12.5 mg qd, hydralazine 50 mg tid as well as recommending a switch from xarelto to eliquis 2.5 mg bid due to kidney function. Discharge discussed with: patient, family - Time Spent with Patient Total time spent providing and/or coordinating discharge services: Greater than 30 minutes (38) - Discharge Medications Prescriptions: clonazePAM [Klonopin] 0.5 mg PO DAILY PRN 3 Days #3 tablet PRN Reason: Anxiety Hydralazine HCl 50 mg PO TID #90 tablet Home Medications: Acetaminophen [Acetaminophen ER] 650 mg PO Q4H PRN 01/18/18 [History] Cyanocobalamin (Vitamin B-12) [Vitamin B-12] 1,000 mcg PO DAILY 01/18/18 [ History] Furosemide [Lasix] 40 mg PO MOWEFR 01/18/18 [History] Memantine HCl [Namenda Xr] 28 mg PO DAILY 01/18/18 [History] Pantoprazole Sodium [Protonix] 20 mg PO DAILY 01/18/18 [History] Potassium Chloride [Klor-Con 10] 10 meq PO BID 01/18/18 [History] Ranitidine HCl [Acid Sausage Canner] 150 mg PO DAILY 01/18/18 [History] Sertraline [Zoloft] 25 mg PO DAILY 01/18/18 [History] carBAMazepine [Tegretol] 200 mg PO BID 01/18/18 [History] rOPINIRole [Requip] 1 mg PO HS 01/18/18 [History] Apixaban [Eliquis] 2.5 mg PO BID tablet 01/22/18 [Rx] Atorvastatin [Lipitor] 40 mg PO HS tablet 01/22/18 [Rx] Hydralazine HCl 50 mg PO TID #90 tablet 01/22/18 [Rx] Lisinopril [Zestril] 10 mg PO DAILY tablet 01/22/18 [Rx] Metoprolol XL (24 HR) Succ [Toprol Xl] 12.5 mg PO DAILY tab.er.24h 01/22/18 [Rx ] amLODIPine [Norvasc] 5 mg PO DAILY tablet 01/22/18 [Rx] clonazePAM [Klonopin] 0.5 mg PO DAILY PRN 3 Days #3 tablet 01/22/18 [Rx] Allergies/Adverse Reactions: 3 Allergy/AdvReac Type Severity Reaction Status Date / Time No Known Allergies Allergy Verified 01/18/18 12:51 Date of admission: 01/18/18 20:12 Primary care physician: Aidan Amador MD Discharging clinician: Marianne Allen Anticipated date of discharge: 01/22/18 - Constitutional Vitals: Temp Pulse Resp BP Pulse Ox 97.7 F 65 15 140/92 98 01/22/18 11:22 01/22/18 11:22 01/22/18 11:22 01/22/18 11:22 01/22/18 11:22 General appearance: Present: cooperative, A&O X 2, pleasant, no acute distress, answers questions appropriately - Head Head exam: Present: atraumatic, normocephalic - Eye Eye exam: Present: EOMI, PERRL, conjuntiva pink, sclera anicteric Pupils: Present: PERRL - Neck Neck exam general surgery: Present: supple, trachea midline. Absent: lymphadenopathy, thyromegaly - Respiratory Respiratory exam: Present: CTAB. Absent: accessory muscle use, rales, rhonchi, wheezes - Cardiovascular Cardiovascular exam: Present: RRR, +S1, +S2. Absent: diastolic murmur, gallop, rubs, systolic murmur - GI/Abdominal GI/Abdominal exam: Present: normal bowel sounds, soft, no peritoneal signs. Absent: distended, rigid, tenderness - Extremities Exam Extremities exam: Present: warm, radial pulses palpable and symmetrical. Absent : calf tenderness, cyanotic, pedal edema - Back Exam Back exam: Present: normal inspection. Absent: CVA tenderness (L), CVA tenderness (R), paraspinal tenderness, vertebral tenderness - Neurological Exam Neurological exam: Present: alert, CN II-XII intact, no focal deficits. Absent : motor sensory deficit, oriented X3, pronater drift, facial droop, speech deficit Additional comments: Alert and orientated to person and place. - Psychiatric Psychiatric exam: Present: normal affect, normal mood - Patient Status Disposition: Transfer SNF Condition: Good Overall status at discharge: patient is progressing back to baseline - Discharge Instructions Instructions: Heart Failure (DC), Atrial Fibrillation (DC), Urinary Tract Infection in Women (DC), Fall Prevention for Older Adults (GEN), Ischemic Stroke (DC), Ischemic Stroke (GEN), Chronic Hypertension (DC), Anxiety (DC) Follow Up With: Aidan Amador MD [Primary Care Provider] - - Diet and Activity Activity: increase activity as tolerated Diet: low salt diet - VTE Documentation of Mechanical Device: Intermittent pneumatic compression device <Kiet Latif - Last Filed: 01/22/18 20:19> Date of Encounter: 01/22/18 - Discharge Diagnosis (1) Hypertensive encephalopathy Status: Resolved (2) HTN (hypertension) Status: Chronic Qualifiers: Hypertension type: essential hypertension Qualified Code(s): I10 - Essential (primary) hypertension (3) Stroke Status: Acute Qualifiers: CVA mechanism: thrombosis Precerebral and cerebral artery: middle cerebral artery Laterality of affected vessel: left Qualified Code(s): I63.312 - Cerebral infarction due to thrombosis of left middle cerebral artery (4) Frequent falls Status: Acute (5) UTI (urinary tract infection) Status: Resolved Qualifiers: Urinary tract infection type: acute cystitis Hematuria presence: without hematuria Qualified Code(s): N30.00 - Acute cystitis without hematuria (6) Acute congestive heart failure Status: Ruled-out Qualifiers: Heart failure type: systolic Qualified Code(s): I50.21 - Acute systolic ( congestive) heart failure (7) Atrial fibrillation Status: Chronic Qualifiers: Atrial fibrillation type: chronic Qualified Code(s): I48.2 - Chronic atrial fibrillation (8) Dementia Status: Chronic Qualifiers: Dementia type: unspecified type Dementia behavioral disturbance: without behavioral disturbance Qualified Code(s): F03.90 - Unspecified dementia without behavioral disturbance (9) Anxiety Status: Chronic (10) CKD (chronic kidney disease) stage 4, GFR 15-29 ml/min Status: Chronic Hospital course: Ms. Marcos is a 88 year old female - Time Spent with Patient Total time spent providing and/or coordinating discharge services: 39min Date of admission: 01/18/18 20:12 Primary care physician: Aidan Amador MD - Constitutional Vitals: Temp Pulse Resp BP Pulse Ox 97.7 F 65 15 140/92 98 01/22/18 11:22 01/22/18 11:22 01/22/18 11:22 01/22/18 11:22 01/22/18 11:22 - Attending Attestation I examined this patient and my medical decision-making was reviewed with the Resident Physician on 01/22/18. I agree with the documented findings, disposition and treatment plan as described except to the extent set forth below. Ms Marcos has been admitted for acute encephalopathy and HTN. She was found to have subacute CVA related to HTN. She was thought to have UTI and was treated. Her mentation returned to baseline. Her BP has been difficult to control but has been slowly improving. She is ready for discharge to SNF. Exam alert Comfortable Mucus membranes dry Heart irreg No wheez Abd soft Plan D/C to SNF today.
--- NOTE | 2018-01-22 15:39 | Nephrology Progress Note ---
Date of Encounter: 01/22/18 Time of Encounter: 09:00 - Assessment and Plan (1) CKD (chronic kidney disease) stage 4, GFR 15-29 ml/min Current Visit: Yes Status: Chronic Patient's creatinine and renal function at baseline. No signs of current pedal edema noted. 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 She is to follow-up outpatient with Dr. Wray. Thank you for your consult. (2) HTN (hypertension) Current Visit: Yes Status: Chronic Continue with lisinopril 10 mg daily, metoprolol 25 mg daily and hydralazine 25mg to slowly titrate to 50mg TID in the setting of TIA. Qualifiers: Hypertension type: essential hypertension Qualified Code(s): I10 - Essential (primary) hypertension (3) Atrial fibrillation Current Visit: Yes Status: Chronic Stable. Continue with Eloquis. Subjective Principal diagnosis: Stage 4 CKD Interval history: No overnight events. Blood pressure continues to be above baseline but systolic < 180. Patient has dementia and subjective is limited. Daughter is not at bedside. Patient denies, headaches, blurry vision, nausea, vomiting. She also states that she is doing better today. She is able to tolerate by mouth intake. Able to void without difficulty. Denies dysuria and hematuria. Objective - Vital Signs Vital signs: Vital Signs Temp Pulse Resp BP Pulse Ox 01/22/18 11:22 97.7 F 65 15 140/92 98 01/22/18 07:32 97.8 F 83 15 161/91 96 01/22/18 04:41 97.7 F 94 16 162/99 97 01/22/18 00:53 73 16 150/99 92 01/21/18 19:24 97.8 F 74 16 151/105 97 01/21/18 15:47 97.7 F 89 16 170/96 94 Intake and Output 01/21/18 01/22/18 01/22/18 23:59 07:59 15:59 Intake Total 340 / 340 360 / 360 Output Total 50 / 50 300 / 300 150 / 150 Balance 290 / 290 -300 / -300 210 / 210 Intake: Oral 340 / 340 360 / 360 Output: Urine 50 / 50 300 / 300 150 / 150 Other: Meal Dinner Lunch Percent of Meal Consumed 90% 75% # Voids 1 Weight 65.1 kg Patient Weight 01/22/18 23:59 Weight 65.1 kg - General Appearance Exam: General appearance: Present: well-developed, well-nourished, appears started age Neck: Present: no JVD, no thyromegaly, no carotid bruit, supple Respiratory: Present: clear Cardiology: Present: no murmurs, no rub, no gallops, no edema, regular rate, regular rhythm, normal S1, normal S2 Gastrointestinal: Present: normoactive bowel sounds, no tenderness, no guarding Integumentary: Present: no rash, warm and dry Neurologic: Present: no focal deficit, no asterixis Musculoskeletal: Present: no deformities, no erythema, no cyanosis, no clubbing Psychiatric: Present: mood/affect appropriate, cooperative - Lab 01/21/18 03:40 01/22/18 04:24 Most recent lab results Calcium 8.6 mg/dL (8.6-10.3) 01/22/18 04:24 Magnesium 1.9 mg/dL (1.6-2.6) 01/19/18 04:00 - VTE Documentation of Mechanical Device: Intermittent pneumatic compression device Consult Discharge Plan - Plan Instructions: Heart Failure (DC), Atrial Fibrillation (DC), Urinary Tract Infection in Women (DC), Fall Prevention for Older Adults (GEN), Ischemic Stroke (DC), Ischemic Stroke (GEN), Chronic Hypertension (DC), Anxiety (DC) Referrals: Aidan Amador MD [Primary Care Provider] - Prescriptions: Hydralazine HCl 50 mg PO TID #90 tablet
--- NOTE | 2018-01-22 20:21 | Physician Discharge Referral ---
ExtendedCare Referral Info Provider in Charge after Transfer: PCP Institutional Level of Care: Skilled - Diagnosis (1) Hypertensive encephalopathy Priority: Primary Status: Resolved (2) HTN (hypertension) Priority: Secondary Status: Chronic (3) Stroke Priority: Secondary Status: Acute (4) Frequent falls Priority: Secondary Status: Acute (5) UTI (urinary tract infection) Priority: Secondary Status: Resolved (6) Atrial fibrillation Priority: Secondary Status: Chronic (7) Dementia Priority: Secondary Status: Chronic (8) Anxiety Priority: Secondary Status: Chronic (9) CKD (chronic kidney disease) stage 4, GFR 15-29 ml/min Priority: Secondary Status: Chronic Prognosis: Fair Aware of Diagnosis: Patient, Family Aware of Prognosis: Patient, Family - Transfer Medications Prescriptions: clonazePAM [Klonopin] 0.5 mg PO DAILY PRN 3 Days #3 tablet PRN Reason: Anxiety Hydralazine HCl 50 mg PO TID #90 tablet Home Medications: Acetaminophen [Acetaminophen ER] 650 mg PO Q4H PRN 01/18/18 [History] Cyanocobalamin (Vitamin B-12) [Vitamin B-12] 1,000 mcg PO DAILY 01/18/18 [ History] Furosemide [Lasix] 40 mg PO MOWEFR 01/18/18 [History] Memantine HCl [Namenda Xr] 28 mg PO DAILY 01/18/18 [History] Pantoprazole Sodium [Protonix] 20 mg PO DAILY 01/18/18 [History] Potassium Chloride [Klor-Con 10] 10 meq PO BID 01/18/18 [History] Ranitidine HCl [Acid Dictionary Editor] 150 mg PO DAILY 01/18/18 [History] Sertraline [Zoloft] 25 mg PO DAILY 01/18/18 [History] carBAMazepine [Tegretol] 200 mg PO BID 01/18/18 [History] rOPINIRole [Requip] 1 mg PO HS 01/18/18 [History] Apixaban [Eliquis] 2.5 mg PO BID tablet 01/22/18 [Rx] Atorvastatin [Lipitor] 40 mg PO HS tablet 01/22/18 [Rx] Hydralazine HCl 50 mg PO TID #90 tablet 01/22/18 [Rx] Lisinopril [Zestril] 10 mg PO DAILY tablet 01/22/18 [Rx] Metoprolol XL (24 HR) Succ [Toprol Xl] 12.5 mg PO DAILY tab.er.24h 01/22/18 [Rx ] amLODIPine [Norvasc] 5 mg PO DAILY tablet 01/22/18 [Rx] clonazePAM [Klonopin] 0.5 mg PO DAILY PRN 3 Days #3 tablet 01/22/18 [Rx] Allergies/Adverse Reactions: 3 Allergy/AdvReac Type Severity Reaction Status Date / Time No Known Allergies Allergy Verified 01/18/18 12:51 - Respiratory Orders None Smoking Cessation: Smoking cessation has been advised. For more information, call the [place] Tobacco Quit Line at 3-055-TBMJ-NOW. - Lab Orders Lab Orders: 2 Step Mantoux Test per State regulation, CBC, Leonel 17 - Ancillary Orders May use pressure relief devices daily prn, May go on HERB w/family/respon democrat w /meds at nurse discretion PRN, May consult with Dentist, Operations Analyst, Open End Spinning Operator PRN - Advance Directives Living Will: Yes Power of Boiler House Inspector: Yes Code Status: DNR-Arrest/Don't Intubate - Mobility Orders Ambulate - Rehabiliation Orders Rehab Potential: Fair Rehab Orders: Evaluation for Physical Therapy, Evaluation for Occupational Therapy - Treatments Skin tear care topically daily PRN per policy, May check for fecal impaction rectally daily PRN, Fleet enema rectally every other day PRN cleansing purposes - Diet Orders No Added Salt (DEMOND), Cardiac CERTIFICATION: I certify that the transfer of the above named patient to an Extended Care Facility is necessary for the continuing treatment of the diagnosis listed. The above information is true and accurate reflection of patient's current condition. Confidential - Redisclosure prohibited without a patient's written consent.
== END 2018-01-22 15:45 | DRG 65 ==
LOC: EMEROO 12:46 → 2NENU 12:46 → SUATTDRO 20:12 → 2NENU 20:34
PROVIDERS: ADMIT Internal Medicine; ATTEND Internal Medicine